=== PATIENT | male | born 1985 | race Caucasian/White ===

== ENCOUNTER 2021-04-13 15:13 | Outpatient (REF) | payer OTHER, SELFPAY ==
[2021-04-13 16:44] LABS: Glucose Urine UA NEG (NEG); Leukocyte Esterase Urine NEG (NEG); Nitrite Urine NEG (NEG); PH 6.5 (5.0-8.0); Urine Blood NEG (NEG); Urine Ketones NEG (NEG); Urine Protein NEG (NEG-TRACE)
[2021-04-13 16:47] LABS: Appearance Urine CLEAR; Color Urine YELLOW
[2021-04-13 16:59] LABS: Alanine Aminotransferase 38 U/L (0-40); Albumin Level 4.6 g/dL (3.5-5.0); Alkaline Phosphatase 58 U/L (39-117); Anion Gap 12 (12-20); Aspartate Amino Transferase 22 U/L (5-37); Blood Urea Nitrogen 21 mg/dL (9-16); Calcium 9.9 mg/dL (8.4-10.2); Carbon Dioxide 30 mmol/L (22-29); Chloride 104 mmol/L (96-108); Estimated Glomerular Filt Rate > 60; Glucose Random 83 mg/dL (60-115); Potassium 4.1 mmol/L (3.3-5.1); Sodium 142 mmol/L (135-145); Total Protein 7.1 g/dL (6.5-8.0)
[2021-04-13 17:21] LABS: Prostate Specific Antigen Scr 0.63 ng/mL (<0.05-4.0)
[2021-04-13 17:23] LABS: RBC Urine 0 /HPF (0); WBC Urine 0 /HPF (0-4)
== END 2021-04-13 15:14 | disposition home or self-care (01) ==
LOC: HO.HMGCLDS 15:13
PROVIDERS: PCP Nurse Practitioner Family; Visit Provider Nurse Practitioner Family
DX: R35.0 Frequency of micturition (principal); Z12.5 Encounter for screening for malignant neoplasm of prostate
CPT/HCPCS: 36415; 80053; 81001; 84153; 87086

== ENCOUNTER → 2021-06-22 15:28 | Outpatient (BNVA) | payer OTHER, SELFPAY | PROVIDERS: PCP Nurse Practitioner Family; Visit Provider Urology ==

== ENCOUNTER 2021-08-10 06:00 | Outpatient (REF) | payer OTHER, SELFPAY ==
[2021-08-10 12:03] LABS: Appearance Urine CLEAR; Color Urine YELLOW; Glucose Urine UA NEG (NEG); Leukocyte Esterase Urine NEG (NEG); Nitrite Urine NEG (NEG); Urine Blood NEG (NEG); Urine Ketones NEG (NEG); Urine Protein NEG (NEG-TRACE)
[2021-08-10 12:21] LABS: Alanine Aminotransferase 29 U/L (0-40); Albumin Level 4.5 g/dL (3.5-5.0); Alkaline Phosphatase 56 U/L (39-117); Anion Gap 11 (12-20); Aspartate Amino Transferase 18 U/L (5-37); Bilirubin Total 0.7 mg/dL (0.0-1.0); Blood Urea Nitrogen 15 mg/dL (9-16); Calcium 9.4 mg/dL (8.4-10.2); Carbon Dioxide 26 mmol/L (22-29); Chloride 109 mmol/L (96-108); Cholesterol 220 mg/dL; Estimated Glomerular Filt Rate > 60; Glucose Fasting 101 mg/dL (60-99); HDL Cholesterol 57 mg/dL; LDL Cholesterol Calculated 149 mg/dl; Potassium 4.4 mmol/L (3.3-5.1); Sodium 142 mmol/L (135-145); Triglycerides 74 mg/dL
[2021-08-10 12:42] LABS: TSH reflex Free T4 1.62 uIU/mL (0.32-4.0)
== END 2021-08-10 06:01 | disposition home or self-care (01) ==
LOC: HO.HMGCLDS 06:00
PROVIDERS: PCP Nurse Practitioner Family; Visit Provider Nurse Practitioner Family
DX: Z00.00 Encounter for general adult medical examination without abnormal findings (principal)
CPT/HCPCS: 36415; 80053; 80061; 81003; 84443

== ENCOUNTER 2021-12-31 12:09 | Outpatient (REF) | payer OTHER, SELFPAY ==
[2021-12-31 13:40] LABS: Appearance Urine CLEAR; Color Urine YELLOW; Glucose Urine UA NEG (NEG); Leukocyte Esterase Urine NEG (NEG); Nitrite Urine NEG (NEG); PH 6.5 (5.0-8.0); Specific Gravity - Urine 1.015 (1.005-1.025); Urine Blood NEG (NEG); Urine Ketones NEG (NEG); Urine Protein NEG (NEG-TRACE)
[2021-12-31 14:03] LABS: RBC Urine 0 /HPF (0); WBC Urine 0 /HPF (0-4)
[2021-12-31 14:17] LABS: Prostate Specific Antigen 0.66 ng/mL (<0.05-4.0)
[2021-12-31 14:32] LABS: Syphilis Screen Nonreactive (Nonreactive)
[2021-12-31 15:10] LABS: CT PCR NOT DETECTED (Not Detect.); NG PCR NOT DETECTED (Not Detect.)
== END 2021-12-31 12:10 | disposition home or self-care (01) ==
LOC: HO.HMGCLDS 12:09
PROVIDERS: Visit Provider Nurse Practitioner Family
DX: Z12.5 Encounter for screening for malignant neoplasm of prostate (principal); Z11.3 Encounter for screening for infections with a predominantly sexual mode of transmission; N39.43 Post-void dribbling; R35.0 Frequency of micturition
CPT/HCPCS: 81001; 84153; 86780; 87086; 87491; 87591

== ENCOUNTER 2022-04-08 06:08 | Outpatient (REF) | payer OTHER, SELFPAY ==
[2022-04-08 11:35] LABS: Appearance Urine HAZY; Color Urine ORANGE; Glucose Urine UA NEG (NEG); Leukocyte Esterase Urine NEG (NEG); Specific Gravity - Urine 1.025 (1.005-1.025); Urine Blood NEG (NEG); Urine Ketones NEG (NEG); Urine Protein TRACE MG/DL (NEG-TRACE)
[2022-04-08 12:12] LABS: Calcium Oxalate Crystals Urine 1+ /LPF
[2022-04-08 12:13] LABS: RBC Urine 0 /HPF (0); Squamous Epithelial Cell Urine TRACE /LPF; WBC Urine 0 /HPF (0-4)
== END 2022-04-08 06:09 | disposition home or self-care (01) ==
LOC: HO.HMGCLDS 06:08
PROVIDERS: PCP Nurse Practitioner Family; Visit Provider Nurse Practitioner Family
DX: R35.0 Frequency of micturition (principal)
CPT/HCPCS: 81001; 87086

== ENCOUNTER → 2022-04-19 14:12 | Outpatient (BNVA) | payer OTHER, SELFPAY | PROVIDERS: PCP Nurse Practitioner Family; Visit Provider Urology | DX: N32.81 Overactive bladder (principal); N45.1 Epididymitis | CPT/HCPCS: 51798 ==

== ENCOUNTER 2022-09-02 06:05 | Outpatient (REF) | payer OTHER, SELFPAY ==
[2022-09-02 11:25] LABS: MANUAL DIFF FLAG NO
[2022-09-02 11:36] LABS: Basophils Absolute Auto 0.1 X10*3/uL (0.0-0.2); Eosinophils Absolute Auto 0.1 X10*3/uL (0.0-0.4); Eosinophils Percent Auto 2.3 % (0-4); Hematocrit 50.4 % (42.0-52.0); Hemoglobin 16.6 g/dl (14.0-18.0); Lymphocytes Absolute Auto 2.1 X10*3/uL (1.2-4.9); Lymphocytes Percent Auto 43.4 % (20-40); Mean Corpuscular HGB Conc 32.9 g/dl (31.0-36.0); Mean Corpuscular Hemoglobin 29.6 pg (27.0-33.0); Mean Corpuscular Volume 89.8 fL (80.0-98.0); Mean Platelet Volume 9.2 fL (9.4-12.4); Monocytes Absolute Auto 0.3 X10*3/uL (0.1-1.2); Monocytes Percent Auto 7.1 % (2-11); Neutrophils Absolute Auto 2.2 x10*3/uL (2.0-8.3); Neutrophils Percent Auto 46.2 % (45-73); Platelet Count 273 X10*3/uL (160-400); Red Blood Count 5.61 X10*6/uL (4.60-5.80); Red Cell Distribution Width 11.9 % (11.0-16.0); White Blood Count 4.8 X10*3/uL (4.8-10.8)
[2022-09-02 11:53] LABS: Appearance Urine Clear; Color Urine Yellow; Glucose Urine UA Negative (Negative); Leukocyte Esterase Urine Negative (Negative); Nitrite Urine Negative (Negative); Urine Blood Negative (Negative); Urine Ketones Negative (Negative); Urine Protein Negative (Neg-Trace)
[2022-09-02 11:59] LABS: Alanine Aminotransferase 33 U/L (0-40); Albumin Level 4.5 g/dL (3.5-5.0); Alkaline Phosphatase 58 U/L (39-117); Anion Gap 14 (12-20); Aspartate Amino Transferase 22 U/L (5-37); Bilirubin Total 0.9 mg/dL (0.0-1.0); Blood Urea Nitrogen 19 mg/dL (9-16); Calcium 9.3 mg/dL (8.4-10.2); Carbon Dioxide 27 mmol/L (22-29); Chloride 102 mmol/L (96-108); Cholesterol 210 mg/dL; Estimated Glomerular Filt Rate > 60; Glucose Fasting 96 mg/dL (60-99); HDL Cholesterol 60 mg/dL; LDL Cholesterol Calculated 139 mg/dl; Potassium 4.3 mmol/L (3.3-5.1); Sodium 139 mmol/L (135-145); Total Protein 7.1 g/dL (6.5-8.0); Triglycerides 57 mg/dL
[2022-09-02 12:07] LABS: TSH reflex Free T4 1.57 uIU/mL (0.32-4.0)
== END 2022-09-02 06:06 | disposition home or self-care (01) ==
LOC: HO.HMGCLDS 06:05
PROVIDERS: PCP Nurse Practitioner Family; Visit Provider Nurse Practitioner Family
DX: Z00.00 Encounter for general adult medical examination without abnormal findings (principal); Z13.220 Encounter for screening for lipoid disorders; Z13.29 Encounter for screening for other suspected endocrine disorder
CPT/HCPCS: 36415; 80053; 80061; 81003; 84443; 85025

== ENCOUNTER 2022-11-19 09:19 | Outpatient (REF) | payer OTHER, SELFPAY ==
--- NOTE | ~2022-11-19 | XR_ITS ---
EXAMINATION: XR FOOT, RIGHT CLINICAL INFORMATION: Right foot pain COMPARISON: None TECHNIQUE: AP, lateral, and oblique views of the right foot. FINDINGS: The bones and soft tissues are normal. No fracture. Alignment is anatomic. Joint spaces are maintained. XR/XR foot RT 2V IMPRESSION: Normal right foot.
== END 2022-11-19 09:20 | disposition home or self-care (01) ==
LOC: HO.HMGCX 09:19
PROVIDERS: PCP Nurse Practitioner Family; Visit Provider Nurse Practitioner Family
DX: M79.671 Pain in right foot (principal)
CPT/HCPCS: 73620

== ENCOUNTER 2022-12-16 07:00 | Outpatient (RCR) | payer OTHER, SELFPAY ==
--- NOTE | 2022-11-21 15:06 | MHC.PT.EP ---
[facility] [place] Office [place] Office [place] Office [address] [phone] F: [phone] F: [phone] F: [phone] F: [phone] Physical Therapy Plan of Care Date of Evaluation: Date of Surgery: Diagnosis: pain in R foot. Assessment: Patient is a 37 year old R handed male who presents with s/s consistent with R foot, achilles pain. 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 Patient past medical history is unremarkable. Current impairments include pain, posture, ROM, strength, activity tolerance, gait mechanics and functional mobility. Functional limitations include decreased ability to walk, run, exercise. Patient is motivated with good rehab potential. Skilled PT will address impairments and functional limitations in order to achieve goals. Frequency and Duration: The patient will be seen 2x/week for 5 weeks Short Term Goals: I with HEP - 2 weeks Normal hip and ankle flex - 3 weeks [employer] Goals: LEFS 74/80 - 5 weeks PAin free running > 5 miles - 5 weeks Strength 4+/5 grossly - 5 weeks Symmetrical gait - 5 weeks Treatment Plan: Modalities to reduce pain, spasms and effusion. Manual therapy to restore motion and function. Therapeutic exercise to improve strength and flexibility. Neuromuscular re-education for posture and balance. Therapeutic activities to return to functional activities of daily living. Electronically signed by: Stanton Solis, PT Please sign and return to therapist. Thank you for your referral.
--- NOTE | 2023-01-18 09:10 | MHC.PT.DC ---
[facility] [place] [facility] [place] Office [place] Office [address] Vee Pelayo [address] [phone] F: [phone] F: [phone] F: [phone] F: [phone] Physical Therapy Discharge Report Diagnosis: pain in R foot. Date of Surgery: Date of Evaluation: 11/21/22 Date of Discharge: 12/29/22 Treatments to Date: 5 Cancellations to Date: No Shows to Date: Discharge Status: Improved Function Independent with HEP Discharge Summary: 12/16/22: we reviewed HEP. Flex has improved grossly. He is able to run pain free x3 miles. Strength and gait goals met. He will attempt to proceed exclusively with HEP at this time. 12/09/22: pt progressed with ankle control, hip strength and flex. we will discuss compression NV. 12/06: Reviewed program up to point with good initial program compliance; addressing noted hip weakness from eval with new ther ex and Pt will trial for HEP. blue theraloop issued. No adverse effects. Reports increased to about 4 mils with mild discomfort. 12/02/22: pt has been compliant with HEP. responding well overall. was able to run 3 pain free miles since eval. we discussed gradual progression on this as he plans to prepare for [place] race. added stretching and STM today, eccentric HR on stair. good response. Patient is a 37 year old R handed male who presents with s/s consistent with R foot, achilles pain. 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 Patient past medical history is unremarkable. Current impairments include pain, posture, ROM, strength, activity tolerance, gait mechanics and functional mobility. Functional limitations include decreased ability to walk, run, exercise. Patient is motivated with good rehab potential. Skilled PT will address impairments and functional limitations in order to achieve goals. Electronically signed by: Stanton Solis, PT Please sign and return to therapist. Thank you for your referral.
== END 2023-01-18 09:10 | disposition home or self-care (01) ==
LOC: HO.PTCHIC 07:00
PROVIDERS: PCP Nurse Practitioner Family; Visit Provider Nurse Practitioner Family
DX: M79.671 Pain in right foot (principal)
CPT/HCPCS: 97110; 97140; 97161

== ENCOUNTER 2023-03-08 06:02 | Outpatient (REF) | payer OTHER, SELFPAY ==
[2023-03-08 11:09] LABS: MANUAL DIFF FLAG NO
[2023-03-08 11:28] LABS: Appearance Urine Clear; Color Urine Yellow; Glucose Urine UA Negative (Negative); Leukocyte Esterase Urine Negative (Negative); Nitrite Urine Negative (Negative); Specific Gravity - Urine 1.025 (1.005-1.025); Urine Blood Negative (Negative); Urine Ketones Negative (Negative); Urine Protein Negative (Neg-Trace)
[2023-03-08 11:29] LABS: Basophils Percent Auto 0.9 % (0-2); Eosinophils Absolute Auto 0.1 X10*3/uL (0.0-0.4); Eosinophils Percent Auto 2.3 % (0-4); Hematocrit 50.2 % (42.0-52.0); Hemoglobin 16.5 g/dl (14.0-18.0); Imm Gran Abs Auto 0.01 X10*3/uL (0.00-0.03); Imm Gran Pct Auto 0.2 % (0.0-0.4); Lymphocytes Absolute Auto 2.1 X10*3/uL (1.2-4.9); Lymphocytes Percent Auto 48.3 % (20-40); Mean Corpuscular HGB Conc 32.9 g/dl (31.0-36.0); Mean Corpuscular Hemoglobin 29.7 pg (27.0-33.0); Mean Corpuscular Volume 90.3 fL (80.0-98.0); Mean Platelet Volume 9.1 fL (9.4-12.4); Monocytes Absolute Auto 0.3 X10*3/uL (0.1-1.2); Monocytes Percent Auto 7.6 % (2-11); Neutrophils Absolute Auto 1.8 x10*3/uL (2.0-8.3); Neutrophils Percent Auto 40.7 % (45-73); Platelet Count 232 X10*3/uL (160-400); Red Blood Count 5.56 X10*6/uL (4.60-5.80); Red Cell Distribution Width 12.1 % (11.0-16.0); White Blood Count 4.4 X10*3/uL (4.8-10.8)
[2023-03-08 12:13] LABS: Alanine Aminotransferase 40 U/L (0-40); Albumin Level 4.4 g/dL (3.5-5.0); Alkaline Phosphatase 55 U/L (39-117); Anion Gap 13 (12-20); Aspartate Amino Transferase 24 U/L (5-37); Bilirubin Total 1.4 mg/dL (0.0-1.0); Blood Urea Nitrogen 20 mg/dL (9-16); Calcium 9.4 mg/dL (8.4-10.2); Carbon Dioxide 27 mmol/L (22-29); Chloride 105 mmol/L (96-108); Cholesterol 229 mg/dL; Estimated Glomerular Filt Rate > 60; Glucose Fasting 94 mg/dL (60-99); HDL Cholesterol 57 mg/dL; LDL Cholesterol Calculated 158 mg/dl; Potassium 4.2 mmol/L (3.3-5.1); Sodium 141 mmol/L (135-145); TSH reflex Free T4 1.67 uIU/mL (0.32-4.0); Total Protein 6.7 g/dL (6.5-8.0); Triglycerides 74 mg/dL
== END 2023-03-08 06:03 | disposition home or self-care (01) ==
LOC: HO.HMGCLDS 06:02
PROVIDERS: PCP Nurse Practitioner Family; Visit Provider Nurse Practitioner Family
DX: E78.5 Hyperlipidemia, unspecified (principal)
CPT/HCPCS: 36415; 80053; 80061; 81003; 84443; 85025

== ENCOUNTER 2023-06-19 10:00 | Outpatient (RCR) | payer OTHER, SELFPAY ==
--- NOTE | 2023-03-29 16:12 | MHC.PT.EP ---
[facility] [place] Office [place] Office [place] Office [address] Vee Pelayo [address] [phone] F: [phone] F: [phone] F: [phone] F: [phone] Physical Therapy Plan of Care Date of Evaluation: Date of Surgery: n/a Diagnosis: pain in L knee Assessment: Patient is a 37 year old male presenting to PT with complaints of pain in his L knee. Pt reports onset of pain began February 2023 due to insidious onset but possible due to running. He presents today with impairments in pain, quad length, +ttp patella tendon, strength. 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 Pt expresses correction goal of reducing pain, and is motivated to work towards this in PT. Clinical presentation today is most consistent with signs and sx associated with possible patella tendonitis and pt will benefit from skilled PT 2 week x 6 weeks to address the following problems and impairments noted upon evaluation: pain, quad length, +ttp patella tendon, strength. These problems limit the patient with the following functional activities: running, ambulating, stair negotiation. The prescribed treatment plan of care is medically necessary. Co-morbidities of none were identified and taken into considerations of plan of care. Pt was educated on HEP, role of PT, prognosis, POC. Frequency and Duration: The patient will be seen 2 x week x 6 weeks Short Term Goals: Pt will demonstrate ability to perform SL STS from chair to demonstrate improved SL stability in 3 weeks. Pt will demonstrate improved hip flexor muscle length in 3 weeks as evidence by negative liang test. Pt will demonstrate minimal to no tenderness to patella tendon in 3 weeks. Clinical Informatics Educator Goals: Pt will demonstrate improved LEFI score by 9 points in 6 weeks for improved functional mobility. Pt will demonstrate ability to jog short distances without pain in 6 weeks for return to PLOF. Pt will demonstrate ability to negotiate stairs with min to no pain in 6 weeks for improved access to his home. Treatment Plan: Modalities to reduce pain, spasms and effusion. Manual therapy to restore motion and function. Therapeutic exercise to improve strength and flexibility. Neuromuscular re-education for posture and balance. Therapeutic activities to return to functional activities of daily living. Electronically signed by: Crystal Douglas, PT, DPT, ATC Please sign and return to therapist. Thank you for your referral.
--- NOTE | 2023-07-21 07:42 | MHC.PT.DC ---
[facility] [place] Office [place] Office [place] Office [address] [phone] F: [phone] F: [phone] F: [phone] F: [phone] Physical Therapy Discharge Report Diagnosis: pain in L knee Date of Surgery: n/a Date of Evaluation: 03/29/23 Date of Discharge: 07/21/23 Treatments to Date: 13 Cancellations to Date: 1 No Shows to Date: 0 Discharge Status: Improved Function Independent with HEP Discharge Summary: Pt was placed on 30 day hold at last visit. 30 days has passed and pt has not reached out to be scheduled. Therefore pt to be d/c. Electronically signed by: Crystal Douglas, PT, DPT, ATC Please sign and return to therapist. Thank you for your referral.
== END 2023-07-21 07:42 | disposition home or self-care (01) ==
LOC: HO.PTCHIC 10:00
PROVIDERS: PCP Nurse Practitioner Family; Visit Provider Nurse Practitioner Family
DX: M25.562 Pain in left knee (principal)
CPT/HCPCS: 97110; 97140; 97161

== ENCOUNTER 2023-08-15 16:18 | Outpatient (AMB) | payer OTHER, SELFPAY ==
--- NOTE | 2023-08-15 16:39 | MHC.PC.OV ---
Vital Signs 08/15/23 16:40 Height 5 ft 10 in Weight 187 lb 2 oz BMI 26.8 BP 126/88 Blood Pressure Location Lt brachial Position Sitting Pulse 73 Pulse Source Pulse Oximeter Pulse Oximetry (%) 97 Oxygen Delivery Method Room Air Intake Visit Reasons: Physical Exam Allergies nisoldipine [Sular] Allergy (Unknown, Verified 08/15/23 16:42) unknown Sulfa (Sulfonamide Antibiotics) [SULFA (SULFONAMIDE ANTIBIOTICS)] Allergy (Unknown, Verified 08/15/23 16:42) UNK sulfamethoxazole Allergy (Verified 08/15/23 16:42) Unknown Medication List - Last Reconciled 08/15/23 by SARAH Gary cetirizine (Zyrtec) 20 mg PO BID PRN fluticasone propionate 50 mcg/actuation (Flonase Allergy Relief) 1 spray intranasal BID PRN hydroxyzine HCl 25 mg PO BEDTIME lorazepam 0.5 mg PO BEDTIME PRN 30 days naltrexone mg PO oxybutynin chloride ER 10 mg PO DAILY solifenacin (Vesicare) 5 mg PO DAILY tamsulosin 0.4 mg PO BEDTIME Tobacco use date assessed: 08/15/23 Dental Screening Dental Screen Date: 08/15/23 Did you have a dental visit in the last 12 months?: Yes Did you have a dental problem in the last 6 months where you did not have access to dental care?: No Was dental information given to patient?: Patient has dentist HPI Physical Exam HPI Details Pt is here for a PE. Will order labs. pt sees urology, ? IC component. PFSH Medical History Anxiety Surgical History Hx of shoulder surgery Social History Housing: House Patient Tobacco Use Status: Never used Tobacco e-Cigarette/Vaping Use: Never Used Second Hand Smoke Exposure: No service: No Current occupational status: employed Current occupation: [employer] Current occupational exposures/hazards: Yes Cognitive needs: No Hearing needs: No Vision needs: No Questionnaire Thrive Questionnaire Date Thrive assessed: 08/05/21 Review of Systems Const Denies chills and Denies fever(s) Eyes Denies blurry vision ENT Denies vertigo, Denies dizziness and Denies sore throat Card Denies chest pain at rest, Denies chest pain with activity, Denies diaphoresis, Denies dyspnea and Denies dyspnea on exertion Resp Denies cough, Denies dyspnea, Denies dyspnea on exertion and Denies wheezing GI Denies abdominal pain, Denies melena, Denies hematochezia, Denies constipation, Denies diarrhea and Denies loose stools Denies hematuria Musc Denies numbness and Denies tingling Skin/Breast Denies lesions Neuro Denies vertigo, Denies dizziness, Denies numbness and Denies tingling Psych Denies anxiety, Denies depression, Denies homicidal ideation, Denies suicidal ideation and Denies other (substance abuse) Aller/Immun Denies wheezing Physical exam (Primary Care) Vital Signs: Last Vital Signs Pulse 73 08/15/23 16:40 BP 126/88 08/15/23 16:40 Pulse Ox 97 08/15/23 16:40 Oxygen Delivery Method Room Air 08/15/23 16:40 BMI result Body Mass Index 26.8 Tobacco/Smoking Status: Tobacco use Status Tobacco use date assessed 08/15/23 08/15/23 16:47 Patient Tobacco Use Status Never used Tobacco 08/15/23 16:47 e-Cigarette/Vaping Use Never Used 08/15/23 16:47 Thrive Assessment: Date of Thrive Assessment Date Thrive assessed 08/05/21 08/15/23 16:47 Const General: cooperative Nutritional Appearance: well nourished Orientation/consciousness: patient oriented x3 HENMT Head: Yes normal to inspection, Yes normocephalic and Yes atraumatic Ears: TM's normal bilaterally Eyes General: appearance normal, both eyes and all related structures Alignment and Position: alignment normal and position normal Neck Neck: Yes normal visual inspection and Yes no lymphadenopathy Thyroid: Thyroid normal Resp Effort & Inspection: normal respiratory effort Auscultation: clear to auscultation bilaterally Cardio Rate: regular rate Rhythm: regular rhythm Heart sounds: S1 normal heart sound present, S2 normal heart sound present and no murmurs GI Palpation (GI): Soft to palpation and nontender Auscultation: normal bowel sounds Male General Exam: Yes normal external exam Penis: normal penis Scrotum: scrotum normal, testes descended bilaterally and no inguinal hernias Testes: no testicular mass Skin Rashes: no rashes Neuro General: patient oriented x3, moves all extremities, no focal motor deficits and deep tendon reflexes 2+ bilaterally Romberg Test: Negative Psych Appearance: grossly normal Mental Status: mental status grossly normal Speech and movement: Normal speech and movement present Affect: normal affect Attitude: cooperative Thought process: Normal thought process present Thought content: Normal thought content present Insight: Good insight present (Psych) Judgement: Good judgement present (Psych) Assessment and Plan Assessment & Plan (1) Physical exam: Code(s): Z. - Encounter for general adult medical examination without abnormal findings Orders: Orders Complete Blood Count Auto Diff Today Z00. - Encounter for general adult medical examination without abnormal findings Comprehensive [place]. Panel Fast Today Z00.00 - Encounter for general adult medical examination without abnormal findings UA CC w/rflx Micro + Cult Today Z00.00 - Encounter for general adult medical examination without abnormal findings TSH reflex Free T4 Today Z00.00 - Encounter for general adult medical examination without abnormal findings Lipid Panel Today Z00.00 - Encounter for general adult medical examination without abnormal findings Coding Level of Care Code Est Pt Prev Care 18-39y(22062) Diagnoses Physical exam Z00.00
[2023-08-15 16:40] VITALS: BP 126/88; PULSE 73; O2SAT 97; BMI 26.8
== END 2023-08-15 17:26 | disposition home or self-care (01) ==
PROVIDERS: Visit Provider Nurse Practitioner Family
DX: Z00.00 Encounter for general adult medical examination without abnormal findings (principal)
CPT/HCPCS: 99395

== ENCOUNTER 2023-10-02 16:02 | Outpatient (REF) | payer OTHER, SELFPAY ==
--- NOTE | ~2023-10-02 | XR_ITS ---
EXAMINATION: XR FOOT, RIGHT XR ANKLE, RIGHT CLINICAL INFORMATION: Pain in right foot and ankle and joints of foot. COMPARISON: Right foot 11/19/2022 radiographs. TECHNIQUE: AP, lateral, and oblique views of the right foot. AP and oblique views of the right ankle. FINDINGS: RIGHT ANKLE: Very minimal spurring along the dorsal aspect of the calcaneus at the site of the Achilles tendon insertion. Subtle transverse lucency along the inferior aspect of the medial malleolus. Ossicle overlying the medial malleolus partially obscured by overlying bony structures. Possible subtle subchondral lucency along the lateral aspect of the talar dome. RIGHT FOOT: Joint spaces are preserved. Bone mineralization normal. No displaced fracture appreciated. XR/XR ankle RT 2V IMPRESSION: 1. Subtle transverse lucency along the inferior aspect of the medial malleolus, possibly related to fracture of indeterminate age. 2. Ossicle overlying the medial malleolus partially obscured by overlying bony structures of indeterminate age and etiology. 3. Possible subtle subchondral lucency along the lateral aspect of the talar dome. 4. Correlation with clinical exam recommended to determine further management including possible additional imaging with MRI. This study was presented today, October 04, 2023, at 9:30 AM for interpretation. PSA staff will provide results to referring provider at this time.
--- NOTE | ~2023-10-02 | XR_ITS ---
EXAMINATION: XR FOOT, RIGHT XR ANKLE, RIGHT CLINICAL INFORMATION: Pain in right foot and ankle and joints of foot. COMPARISON: Right foot 11/19/2022 radiographs. TECHNIQUE: AP, lateral, and oblique views of the right foot. AP and oblique views of the right ankle. FINDINGS: RIGHT ANKLE: Very minimal spurring along the dorsal aspect of the calcaneus at the site of the Achilles tendon insertion. Subtle transverse lucency along the inferior aspect of the medial malleolus. Ossicle overlying the medial malleolus partially obscured by overlying bony structures. Possible subtle subchondral lucency along the lateral aspect of the talar dome. RIGHT FOOT: Joint spaces are preserved. Bone mineralization normal. No displaced fracture appreciated. XR/XR foot RT 2V IMPRESSION: 1. Subtle transverse lucency along the inferior aspect of the medial malleolus, possibly related to fracture of indeterminate age. 2. Ossicle overlying the medial malleolus partially obscured by overlying bony structures of indeterminate age and etiology. 3. Possible subtle subchondral lucency along the lateral aspect of the talar dome. 4. Correlation with clinical exam recommended to determine further management including possible additional imaging with MRI. This study was presented today, October 04, 2023, at 9:30 AM for interpretation. PSA staff will provide results to referring provider at this time.
== END 2023-10-02 16:03 | disposition home or self-care (01) ==
LOC: HO.HMGCX 16:02
PROVIDERS: PCP Nurse Practitioner Family; Visit Provider Nurse Practitioner Family
DX: M79.671 Pain in right foot (principal); M25.571 Pain in right ankle and joints of right foot
CPT/HCPCS: 73600; 73620

== ENCOUNTER 2023-10-26 10:29 | Outpatient (REF) | payer OTHER, SELFPAY | END 2023-10-26 10:30 | disposition home or self-care (01) | LOC: HO.HOSX 10:29 | PROVIDERS: PCP Nurse Practitioner Family; Visit Provider Physical Medicine & Rehabilitation | DX: M22.2X1 Patellofemoral disorders, right knee (principal); M22.2X2 Patellofemoral disorders, left knee; S93.401A Sprain of unspecified ligament of right ankle, initial encounter | CPT/HCPCS: 73562 ==

== ENCOUNTER 2023-10-26 10:29 | Outpatient (AMB) | payer OTHER, SELFPAY ==
--- NOTE | 2023-10-26 10:38 | A.OFFVIS_ITS ---
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 Patient reports that he is an active runner and has been having pain with running. He was previously seen for achilles tendinitis and had completed PT. His PCP ordered an MRI that is scheduled for 11/13/22. Currently his pain is located at the top of his foot and his achilles. He also complains of pain at the anterior aspect of knee, stating unsure if this is related. Allergies Sulfa (Sulfonamide Antibiotics) [SULFA (SULFONAMIDE ANTIBIOTICS)] Allergy (Unknown, Verified 08/15/23 16:42) UNK sulfamethoxazole Allergy (Verified 08/15/23 16:42) Unknown Medication List - Last Reconciled 10/26/23 by Natasha Morocho MD cetirizine (Zyrtec) 20 mg PO BID PRN fluticasone propionate 50 mcg/actuation (Flonase Allergy Relief) 1 spray intranasal BID PRN hydroxyzine HCl 25 mg PO BEDTIME lorazepam 0.5 mg PO BEDTIME PRN 30 days naltrexone mg PO oxybutynin chloride ER 10 mg PO DAILY solifenacin (Vesicare) 5 mg PO DAILY tamsulosin 0.4 mg PO BEDTIME HPI HPI Comments History of Present Illness Details Right foot Has been a runner over 2 years; 2-3 days/week; 15-20 miles/week; changed shoes every 300-400 miles; running over pavements. Does weight lifting at the gym. 1 year ago, had right achilles tendiniti s; had PT, improved. Went back to running, did a 6 mile race for the first time, January 2023. Started training for a half marathon. Last February, started having left knee pain/patellar pain. Did PT for the left knee. During that process, actually did have bilateral knee/patellar pain and tightness on hamstrings, calves and quadriceps. Continued PT. Left knee better. Continued to have wiggle /pain on distal quadriceps and hamstrings, more like discomfort. Lessened runs to 3-5 miles. Last time he ran was 09/21. A day after, felt on right lateral ankle, achilles and dorsal foot. Has switched stairmaster and biking. Xray shows lucency near medial malleoli and MRI pending. [facility] Medical History (Updated 10/26/23 @ 11:51 by Natasha Morocho MD) Anxiety Surgical History (Updated 10/26/23 @ 10:40 by Kelsey Mendoza Alpesh) Hx of shoulder surgery Social History Housing: House Patient Tobacco Use Status: Never used Tobacco e-Cigarette/Vaping Use: Never Used Second Hand Smoke Exposure: No service: No Current occupational status: employed Current occupation: [employer] Current occupational exposures/hazards: Yes Cognitive needs: No Hearing needs: No Vision needs: No Review of Systems Const All systems reviewed & are unremarkable except as noted in HPI and below Physical Exam Constitutional: Patient appears to be in no acute distress, well nourished and well developed. MSK: No specific abnormalities found on inspection of the spine and all extremities. Lumbar ROM was full. Bilateral hip, knee and ankle ROM WNL. No ligamentous laxity or crepitant. No increased effusion. No joint line tenderness. No tenderness over patella. Patellar grind test is negative. Valgus and varus stress tests are negative. Margaret test is negative. No significant tenderness over right Achillis tendon. No tenderness on plantar fascia. No footdrop. No pain or weakness on EHL. No ankle instability. No tenderness on or around medial or lateral malleoli. Strength is 5/5 in all muscle groups tested. No increased tone noted. Neurological: Neurologic examination of the upper and lower extremities was nonfocal with intact sensation, muscle stretch reflexes and without focal motor deficits . Rodriguez?s negative bilaterally. Babinski was down going bilaterally. Clonus was negative. Gait is non-antalgic without loss of balance. Results Reviewed Results Reviewed: XR FOOT, RIGHT XR ANKLE, RIGHT CLINICAL INFORMATION: Pain in right foot and ankle and joints of foot. COMPARISON: Right foot 11/19/2022 radiographs.? TECHNIQUE: AP, lateral, and oblique views of the right foot. AP and oblique views of the right ankle. FINDINGS: RIGHT ANKLE: Very minimal spurring along the dorsal aspect of the calcaneus at the site of the Achilles tendon insertion. Subtle transverse lucency along the inferior aspect of the medial malleolus. Ossicle overlying the medial malleolus partially obscured by overlying bony structures. Possible subtle subchondral lucency along the lateral aspect of the talar dome. RIGHT FOOT: Joint spaces are preserved. Bone mineralization normal. No displaced fracture appreciated. XR/XR foot RT 2V IMPRESSION: ? 1. Subtle transverse lucency along the inferior aspect of the medial malleolus, possibly related to fracture of indeterminate age. 2. Ossicle overlying the medial malleolus partially obscured by overlying bony structures of indeterminate age and etiology. 3. Possible subtle subchondral lucency along the lateral aspect of the talar dome. 4. Correlation with clinical exam recommended to determine further management including possible additional imaging with MRI. ? This study was presented today, October 04, 2023, at 9:30 AM for interpretation. PSA staff will provide results to referring provider at this time. I reviewed records from the following: PCP Urology Assessment & Plan Assessment & Plan (1) Right ankle sprain: Code(s): S93.401A - Sprain of unspecified ligament of right ankle, initial encounter Qualifiers: Encounter type: initial encounter Involved ligament of ankle: unspecified ligament Qualified Code(s): S93.401A - Sprain of unspecified ligament of right ankle, initial encounter (2) Patellofemoral pain syndrome of both knees: Code(s): M22.2X1 - Patellofemoral disorders, right knee; M22.2X2 - Patellofemoral disorders, left knee Plan Suspect right ankle sprain on an avid runner. He is also dealing with patellofemoral pain syndrome. No instability seen on either ankle or knees on exam today. I agree with laying off from running for now. May go back to working out using cardio or biking, not pushing through pain, until at least completely pain-free and or cleared from MRI pain. Taught him out use an ice bucket. 15 minutes per day. Will put him on a lace-up ankle brace. Will do knee x-rays today. To include sunrise views to see any displacement of patella. Await MRI. Assessment and plan discussed with patient, and patient was agreeable. All questions were answered thoroughly. Follow-up 4-6 weeks. Natasha Morocho MD, EUGENIA Board Certified, [place] [employer] and [employer] (ABPMR) Board Certified, [place] [employer] (ABEM) Orders: Orders XR knee RT 3V Today M22.2X1 - Patellofemoral disorders, right knee, M22.2X2 - Patellofemoral disorders, left knee XR knee LT 3V Today M22.2X1 - Patellofemoral disorders, right knee, M22.2X2 - Patellofemoral disorders, left knee, M25.50 - Pain in unspecified joint Coding Level of Care Code New Pt Level 4 (23599) Diagnoses Sprain of right ankle, unspecified ligament, initial encounter S93.401A Encounter type: initial encounter Involved ligament of ankle: unspecified ligament Patellofemoral pain syndrome of both knees M22.2X1; M22.2X2
== END 2023-10-26 11:28 | disposition home or self-care (01) ==
PROVIDERS: PCP Nurse Practitioner Family; Visit Provider Physical Medicine & Rehabilitation
DX: S93.401A Sprain of unspecified ligament of right ankle, initial encounter (principal); M22.2X1 Patellofemoral disorders, right knee; M22.2X2 Patellofemoral disorders, left knee
CPT/HCPCS: 99204

== ENCOUNTER 2023-11-13 06:09 | Outpatient (REF) | payer OTHER, SELFPAY ==
[2023-11-18 19:18] LABS: Testosterone, Free 89.9 pg/mL (35.0-155.0); Testosterone, Total 502 ng/dL (250-1100)
== END 2023-11-13 06:10 | disposition home or self-care (01) ==
LOC: HO.HMGCLDS 06:09
PROVIDERS: PCP Nurse Practitioner Family; Visit Provider Urology
DX: R68.82 Decreased libido (principal)
CPT/HCPCS: 36415; 84402; 84403

== ENCOUNTER 2023-11-13 10:19 | Outpatient (REF) | payer OTHER, SELFPAY ==
--- NOTE | ~2023-11-13 | MR_ITS ---
EXAMINATION: MR ANKLE WITHOUT CONTRAST, RIGHT CLINICAL INFORMATION: Lateral right ankle pain since 10/02/2023. Forefoot pain. COMPARISON: Right ankle and foot radiographs dated 10/02/2023. TECHNIQUE: MRI of the ankle was performed using routine sequences on a high-field scanner. FINDINGS: BONE AND ARTICULAR CARTILAGE: Along the inferior aspect of the medial malleolus, there is a corticated osseous fragment measuring up to 0.8 x 0.4 x 0.3 cm. Mild edema within the fragment and adjacent medial malleolus. Findings likely represent a persistent, unfused medial malleolar avulsion fracture which was seen on the prior radiographs. No acute fracture or dislocation. The ankle mortise is maintained. Osteochondral lesion at the posterolateral aspect of the talar dome measuring 2.0 x 1.3 cm (AP by ML) with a depth of approximately 0.6 cm. There is overlying articular cartilage thinning with areas of full-thickness loss as well as underlying subchondral cystic change and marrow edema. No evidence of fragmentation or instability. Minimal marginal osteophytes at the talonavicular joint. ACHILLES TENDON: Intact. OTHER TENDONS: Intact. LIGAMENTS: Heterogeneity throughout the deltoid ligament as well as the anterior and posterior talofibular ligaments without significant edema, consistent with remote sprain/partial tears. JOINT FLUID AND SOFT TISSUES: No significant joint effusion. No abnormal soft tissue mass or fluid collection. PLANTAR FASCIA: Intact. SINUS TARSI AND TARSAL TUNNEL: Patent. MR/MR ankle RT wo con IMPRESSION: 1. Osteochondral lesion at the posterolateral aspect of the talar dome measuring up to 2.0 x 1.3 cm (AP x ML) with overlying articular cartilage thinning and areas of full-thickness loss as well as underlying subchondral cystic change and marrow edema. No evidence of fragmentation or instability. 2. Probable persistent, unfused medial malleolar avulsion fracture with mild marrow edema. 3. Remote sprain/partial tears of the deltoid ligament as well as the anterior and posterior talofibular ligaments.
== END 2023-11-13 10:20 | disposition home or self-care (01) ==
LOC: HO.MRI 10:19
PROVIDERS: PCP Nurse Practitioner Family; Visit Provider Nurse Practitioner Family
DX: R93.89 Abnormal findings on diagnostic imaging of other specified body structures (principal); S82.51XA Displaced fracture of medial malleolus of right tibia, initial encounter for closed fracture
CPT/HCPCS: 73721

== ENCOUNTER 2023-11-30 10:48 | Outpatient (AMB) | payer OTHER, SELFPAY ==
--- NOTE | 2023-11-30 11:00 | A.OFFVIS_ITS ---
Intake Vital Signs 11/30/23 11:02 Height 5 ft 10 in Weight 187 lb BMI 26.8 Intake Visit Reasons: OV- right foot pain Intake Note: Eren 38 yr old male presents today for his right ankle TN review. Allergies Sulfa (Sulfonamide Antibiotics) [SULFA (SULFONAMIDE ANTIBIOTICS)] Allergy (Unknown, Verified 11/30/23 11:02) UNK sulfamethoxazole Allergy (Verified 11/30/23 11:02) Unknown Medication List - Last Reconciled 11/30/23 by Natasha Morocho MD cetirizine (Zyrtec) 20 mg PO BID PRN fluticasone propionate 50 mcg/actuation (Flonase Allergy Relief) 1 spray intranasal BID PRN hydroxyzine HCl 25 mg PO BEDTIME lorazepam 0.5 mg PO BEDTIME PRN 30 days naltrexone mg PO oxybutynin chloride ER 10 mg PO DAILY solifenacin (Vesicare) 5 mg PO DAILY tamsulosin 0.4 mg PO BEDTIME HPI HPI Comments History of Present Illness Details Has been a runner over 2 years; 2-3 days/week; 15-20 miles/week; changed shoes every 300-400 miles; running over pavements. Does weight lifting at the gym. 1 year ago, had right achilles tendiniti s; had PT, improved. Went back to running, did a 6 mile race for the first time, January 2023. Started training for a half marathon. Last February, started having left knee pain/patellar pain. Did PT for the left knee. During that process, actually did have bilateral knee/patellar pain and tightness on hamstrings, calves and quadriceps. Continued PT. Left knee better. Continued to have wiggle /pain on distal quadriceps and hamstrings, more like discomfort. Lessened runs to 3-5 miles. Last time he ran was 09/21. A day after, felt on right lateral ankle, achilles and dorsal foot. Has switched stairmaster and biking. Xray shows lucency near medial malleoli. Here today for MRI review. He has not run since I saw him. Has been wearing aircast. Walking does not cause pain. He tried walking on treadmill uphill which caused more pain, he stopped. Pain would be anterior dorsal foot. No swelling now. Denies pain on lateral or medial ankle/malleoli. [facility] Medical History (Updated 11/30/23 @ 12:04 by Natasha Morocho MD) Closed avulsion fracture of right ankle with delayed healing Osteochondral lesion of talar dome Anxiety Surgical History Hx of shoulder surgery Social History Housing: House Patient Tobacco Use Status: Never used Tobacco e-Cigarette/Vaping Use: Never Used Second Hand Smoke Exposure: No service: No Current occupational status: employed Current occupation: [employer] Current occupational exposures/hazards: Yes Cognitive needs: No Hearing needs: No Vision needs: No Physical Exam Vital Signs: BMI result Body Mass Index 26.8 Constitutional: Patient appears to be in no acute distress, well nourished and well developed. MSK: No significant tenderness over right Achillis tendon. No tenderness on plantar fascia. No footdrop. No pain or weakness on EHL or peroneal tendons. No ankle instability. No tenderness on or around medial or lateral malleoli. Indicates pain dorsal/anterior foot, talus. Strength is 5/5 in all muscle groups tested. No increased tone noted. Results Reviewed Results Reviewed: Date of Service: 11/13/23 Procedure(s): MR ankle RT wo con Accession Number(s): [id number] cc: Puneet Tesfaye [employer]~ EXAMINATION: MR ANKLE WITHOUT CONTRAST, RIGHT CLINICAL INFORMATION: Lateral right ankle pain since 10/02/2023. Forefoot pain. COMPARISON: Right ankle and foot radiographs dated 10/02/2023. TECHNIQUE: MRI of the ankle was performed using routine sequences on a high-field scanner. FINDINGS: BONE AND ARTICULAR CARTILAGE: Along the inferior aspect of the medial malleolus, there is a corticated osseous fragment measuring up to 0.8 x 0.4 x 0.3 cm. Mild edema within the fragment and adjacent medial malleolus. Findings likely represent a persistent, unfused medial malleolar avulsion fracture which was seen on the prior radiographs. No acute fracture or dislocation. The ankle mortise is maintained. Osteochondral lesion at the posterolateral aspect of the talar dome measuring 2.0 x 1.3 cm (AP by ML) with a depth of approximately 0.6 cm. There is overlying articular cartilage thinning with areas of full-thickness loss as well as underlying subchondral cystic change and marrow edema. No evidence of fragmentation or instability. Minimal marginal osteophytes at the talonavicular joint. ACHILLES TENDON: Intact. OTHER TENDONS: Intact. LIGAMENTS: Heterogeneity throughout the deltoid ligament as well as the anterior and posterior talofibular ligaments without significant edema, consistent with remote sprain/partial tears. JOINT FLUID AND SOFT TISSUES: No significant joint effusion. No abnormal soft tissue mass or fluid collection. PLANTAR FASCIA: Intact. SINUS TARSI AND TARSAL TUNNEL: Patent. MR/MR ankle RT wo con IMPRESSION: 1. Osteochondral lesion at the posterolateral aspect of the talar dome measuring up to 2.0 x 1.3 cm (AP x ML) with overlying articular cartilage thinning and areas of full-thickness loss as well as underlying subchondral cystic change and marrow edema. No evidence of fragmentation or instability. 2. Probable persistent, unfused medial malleolar avulsion fracture with mild marrow edema. 3. Remote sprain/partial tears of the deltoid ligament as well as the anterior and posterior talofibular ligaments. Assessment & Plan Assessment & Plan (1) Osteochondral lesion of talar dome: Code(s): M89.9 - Disorder of bone, unspecified; M94.9 - Disorder of cartilage, unspecified (2) Closed avulsion fracture of right ankle with delayed healing: Code(s): S82.891G - Other fracture of right lower leg, subsequent encounter for closed fracture with delayed healing Plan Discussed MRI with Dr. Self and then discussed with patient. Would likely need surgical management, scope/clean out vs allograft? I would refer him to Dr. Rodriguez at [facility]. We thought about option for PRP injection but I would recommend having this done under guidance or in the OR, but cannot guarantee how much it would help. I agree with investigating his surgical options and make decision based on which would allow him to return back to running after. He does understand prognosis is guarded (in terms of return to activity) if non surgical management is chosen. Still no running or any activity if with pain, at least until he sees Dr. Rodriguez. Can do leg exercises seated or laying down, or can attempt elliptical if not painful. Wear aircast for support if will be up and about. Assessment and plan discussed with patient, and patient was agreeable. All questions were answered thoroughly. Total of 45 minutes spent today including chart review, results review, history taking, physical examination, discussion of assessment and plan, and coordination of care. [ ] Natasha Morohco MD, EUGENIA Board Certified, [place] [employer] and Rehabilitation (ABPMR) Board Certified, [place] Board [employer] Electro[employer] (ABEM) Orders: Referrals Orthopedics Referral M89.9 - Disorder of bone, unspecified, M94.9 - Disorder of cartilage, unspecified, S82.891G - Other fracture of right lower leg, subsequent encounter for closed fracture with delayed healing Coding Level of Care Code Est Pt Level 5 (97317) Diagnoses Osteochondral lesion of talar dome M89.9; M94.9 Closed avulsion fracture of right ankle with delayed healing S82.891G
[2023-11-30 11:02] VITALS: BMI 26.8
== END 2023-11-30 11:53 | disposition home or self-care (01) ==
PROVIDERS: PCP Nurse Practitioner Family; Visit Provider Physical Medicine & Rehabilitation
DX: M89.9 Disorder of bone, unspecified (principal); M94.9 Disorder of cartilage, unspecified; S82.891G Other fracture of right lower leg, subsequent encounter for closed fracture with delayed healing
CPT/HCPCS: 99215

== ENCOUNTER → 2023-11-30 10:48 | Outpatient (BNVA) | payer OTHER, SELFPAY | PROVIDERS: PCP Nurse Practitioner Family; Visit Provider Physical Medicine & Rehabilitation ==

== ENCOUNTER 2024-01-30 06:01 | Outpatient (REF) | payer OTHER, SELFPAY ==
[2024-01-30 11:46] LABS: MANUAL DIFF FLAG NO
[2024-01-30 12:00] LABS: Appearance Urine Clear; Color Urine Yellow; Glucose Urine UA Negative (Negative); Leukocyte Esterase Urine Negative (Negative); Nitrite Urine Negative (Negative); Specific Gravity - Urine 1.015 (1.005-1.025); Urine Blood Negative (Negative); Urine Ketones Negative (Negative); Urine Protein Negative (Neg-Trace)
[2024-01-30 12:18] LABS: Basophils Percent Auto 0.7 % (0-2); Eosinophils Absolute Auto 0.1 X10*3/uL (0.0-0.4); Eosinophils Percent Auto 1.8 % (0-4); Hematocrit 52.5 % (42.0-52.0); Hemoglobin 17.2 g/dl (14.0-18.0); Imm Gran Abs Auto 0.01 X10*3/uL (0.00-0.03); Imm Gran Pct Auto 0.2 % (0.0-0.4); Lymphocytes Absolute Auto 1.6 X10*3/uL (1.2-4.9); Lymphocytes Percent Auto 36.7 % (20-40); Mean Corpuscular HGB Conc 32.8 g/dl (31.0-36.0); Mean Corpuscular Hemoglobin 29.1 pg (27.0-33.0); Mean Corpuscular Volume 88.8 fL (80.0-98.0); Mean Platelet Volume 8.8 fL (9.4-12.4); Monocytes Absolute Auto 0.4 X10*3/uL (0.1-1.2); Monocytes Percent Auto 7.9 % (2-11); Neutrophils Absolute Auto 2.3 x10*3/uL (2.0-8.3); Neutrophils Percent Auto 52.7 % (45-73); Platelet Count 255 X10*3/uL (160-400); Red Blood Count 5.91 X10*6/uL (4.60-5.80); Red Cell Distribution Width 12.5 % (11.0-16.0); White Blood Count 4.4 X10*3/uL (4.8-10.8)
[2024-01-30 13:03] LABS: Alanine Aminotransferase 38 U/L (0-40); Albumin Level 4.4 g/dL (3.5-5.0); Alkaline Phosphatase 55 U/L (39-117); Anion Gap 11 (12-20); Aspartate Amino Transferase 25 U/L (5-37); Bilirubin Total 0.8 mg/dL (0.0-1.0); Blood Urea Nitrogen 16 mg/dL (9-16); Calcium 9.3 mg/dL (8.4-10.2); Carbon Dioxide 28 mmol/L (22-29); Chloride 106 mmol/L (96-108); Cholesterol 211 mg/dL (<200); Estimated Glomerular Filt Rate > 60; Glucose Fasting 99 mg/dL (60-99); HDL Cholesterol 67 mg/dL (>40); LDL Cholesterol Calculated 135 mg/dL (<100); Potassium 3.9 mmol/L (3.3-5.1); Sodium 141 mmol/L (135-145); Total Protein 7.1 g/dL (6.5-8.0); Triglycerides 46 mg/dL (<150)
[2024-01-30 13:24] LABS: TSH reflex Free T4 1.09 uIU/mL (0.32-4.0)
== END 2024-01-30 06:02 | disposition home or self-care (01) ==
LOC: HO.HMGCLDS 06:01
PROVIDERS: PCP Nurse Practitioner Family; Visit Provider Nurse Practitioner Family
DX: Z00.00 Encounter for general adult medical examination without abnormal findings (principal); Z13.6 Encounter for screening for cardiovascular disorders
CPT/HCPCS: 36415; 80053; 80061; 81003; 84443; 85025

== ENCOUNTER 2024-05-30 11:29 | Outpatient (AMB) | payer BC, SELFPAY ==
--- NOTE | 2024-05-30 11:33 | MHC.PC.OV ---
Vital Signs 05/30/24 11:35 Height 5 ft 10 in Weight 187 lb BMI 26.8 BP 130/80 Blood Pressure Location Lt brachial Position Sitting Pulse 74 Pulse Source Pulse Oximeter Pulse Oximetry (%) 97 Oxygen Delivery Method Room Air Intake Visit Reasons: 6 mo F/U Intake Note: Patient here to update us on urology treatment. Allergies Sulfa (Sulfonamide Antibiotics) [SULFA (SULFONAMIDE ANTIBIOTICS)] Allergy (Unknown, Verified 05/30/24 11:36) UNK sulfamethoxazole Allergy (Verified 05/30/24 11:36) Unknown Tobacco use date assessed: 05/30/24 Dental Screening Dental Screen Date: 05/30/24 HPI 6 mo F/U HPI Details Anxiety: Pt reports that he has not been so stressed lately. 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 lorazepam used infrequently. Denies any SI and HI. He has a new girlfriend, this is going well, and his ankle/foot issue is getting better (running, more physically active), which helps with anxiety. [facility] Medical History Interstitial cystitis (chronic) without hematuria Closed avulsion fracture of right ankle with delayed healing Osteochondral lesion of talar dome Anxiety Surgical History Hx of shoulder surgery Social History Housing: House Patient Tobacco Use Status: Never used Tobacco e-Cigarette/Vaping Use: Never Used Second Hand Smoke Exposure: No service: No Current occupational status: employed Current occupation: [employer] Current occupational exposures/hazards: Yes Cognitive needs: No Hearing needs: No Vision needs: No Questionnaire PHQ-9 Over the last 2 weeks, how often have you been bothered by any of the following problems? 1. Little interest or pleasure in doing things: not at all 2. Feeling down, depressed, or hopeless: not at all 3. Trouble falling or staying asleep, or sleeping too much: several days 4. Feeling tired or having little energy: not at all 5. Poor appetite or overeating: not at all 6. Feeling bad about yourself - or that you are a failure or have let yourself or your family down: not at all 7. Trouble concentrating on things, such as reading the newspaper or watching television: not at all 8. Moving or speaking so slowly that other people could have noticed. Or the opposite - being so fidgety or restless that you have been moving around a lot more than usual: not at all 9. Thoughts that you would be better off or of hurting yourself in some way: not at all Total score: 1 Depression Screening Interpretation: Negative Depression Screening Done: Yes 39308 - PHQ-9 Billing: Yes Source: Developed by Drs. Torrey Wong, Ariela White, Markell Foreman and colleagues, with an educational preeti from [employer]. Thrive Questionnaire Date Thrive assessed: 05/30/24 I am a: Patient What is your living situation today?: I have a steady place to live Within the past 12 months, did the food you bought not last and you didn't have the money to get more?: Never true Within the past 12 months, did you worry whether your food would run out before you got money to buy more?: Never true Do you have trouble paying for medicines?: No Do you have trouble getting transportation to medical appointments?: No Do you have trouble paying your heating and electricity bill?: No Do you have trouble taking care of your child, family member or friend?: No Do you have trouble with day-to-day activities such as bathing, preparing meals, shopping, managing finances, etc.?: No Are you currently unemployed and looking for a job?: No Are you interested in more education?: No Please select the resources that you would like help with: Housing/Residential Currently or been in a relationship where the following occur: No concerns reported THRIVE Score: 0 AUDIT C Alcohol Use Questionnaire (AUDIT-C) 1. How often do you have a drink containing alcohol?: Monthly or less 2. How many drinks containing alcohol do you have on a typical day when you are drinking?: 1 or 2 3. How often do you have six or more drinks on one occasion?: Never Total Score: 1 DEAN-7 AMB Questionnaire DEAN-7 Date DEAN - 7 assessed: 05/30/24 Feeling nervous, anxious, or on edge: 0 = Not at all Not being able to stop or control worryin = Not at all Worrying too much about different things: 0 = Not at all Trouble relaxin = Not at all Being so restless that it is hard to sit still: 0 = Not at all Becoming easily annoyed or irritable: 0 = Not at all Feeling afraid as if something awful might happen: 0 = Not at all Total DEAN-7 score (0-4 normal; 5-9 mild; 10-14 moderate; 15-21 severe): 0 Source: Developed by Drs. Torrey Wong, Ariela White, Markell Foreman and colleagues, with an educational preeti from [employer]. Review of Systems Const Reports as per HPI Physical exam (Primary Care) Vital Signs: Last Vital Signs Pulse 74 05/30/24 11:35 BP 130/80 05/30/24 11:35 Pulse Ox 97 05/30/24 11:35 Oxygen Delivery Method Room Air 05/30/24 11:35 BMI result Body Mass Index 26.8 Tobacco/Smoking Status: Tobacco use Status Tobacco use date assessed 05/30/24 05/30/24 11:39 Patient Tobacco Use Status Never used Tobacco 05/30/24 11:33 e-Cigarette/Vaping Use Never Used 05/30/24 11:33 PHQ-9: PHQ-9 Score PHQ-9: Total score 1 05/30/24 11:39 Depression Screening Interpretation: Negative Thrive Assessment: Date of Thrive Assessment Date Thrive assessed 05/30/24 05/30/24 11:39 Currently or been in a relationship where the following occur: No concerns reported Const General: cooperative Orientation/consciousness: patient oriented x3 Resp Effort & Inspection: normal respiratory effort Auscultation: clear to auscultation bilaterally Cardio Rate: regular rate Rhythm: regular rhythm Heart sounds: S1 normal heart sound present and S2 normal heart sound present Neuro General: patient oriented x3 Psych Appearance: grossly normal Mental Status: mental status grossly normal Speech and movement: Normal speech and movement present Affect: normal affect Attitude: cooperative Thought process: Normal thought process present Thought content: Normal thought content present Insight: Good insight present (Psych) Judgement: Good judgement present (Psych) Assessment and Plan Assessment & Plan (1) Anxiety: Code(s): F41.9 - Anxiety disorder, unspecified Plan: cont same regime Plan The patient agreed to the use of a medical numerical control operator for this encounter. Scribed for JOSH Ortega-DIEGO by Anjelica Sosa medical numerical control operator, on 05/30/2024 at 11:50 EST. Orders: Orders Comprehensive [place]. Panel Fast Today F41.9 - Anxiety disorder, unspecified TSH reflex Free T4 Today F41.9 - Anxiety disorder, unspecified Lipid Panel Today F41.9 - Anxiety disorder, unspecified Complete Blood Count Auto Diff Today F41.9 - Anxiety disorder, unspecified UA CC w/rflx Micro + Cult Today F41.9 - Anxiety disorder, unspecified Coding Level of Care Code Est Pt Level 3 (77208) Diagnoses Anxiety F41.9
[2024-05-30 11:35] VITALS: BP 130/80; PULSE 74; O2SAT 97; BMI 26.8
== END 2024-05-30 12:33 | disposition home or self-care (01) ==
PROVIDERS: PCP Nurse Practitioner Family; Visit Provider Nurse Practitioner Family
DX: F41.9 Anxiety disorder, unspecified (principal)
CPT/HCPCS: 99213

== ENCOUNTER 2024-08-22 15:19 | Outpatient (AMB) | payer BC, SELFPAY ==
[2024-08-22 15:24] VITALS: BP 120/80; PULSE 72; O2SAT 98; BMI 26.3
--- NOTE | 2024-08-22 15:24 | A.OFFPC_ITS ---
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 Accompanied by: Self / Same As Patient Allergies Sulfa (Sulfonamide Antibiotics) [SULFA (SULFONAMIDE ANTIBIOTICS)] Allergy (Unknown, Verified 08/22/24 15:40) UNK sulfamethoxazole Allergy (Verified 08/22/24 15:40) Unknown Medication List - Last Reconciled 08/22/24 by JOSH Gary-DIEGO cetirizine (Zyrtec) 20 mg PO BID PRN fluticasone propionate 50 mcg/actuation (Flonase Allergy Relief) 1 spray intranasal BID PRN hydroxyzine HCl 25 mg PO BEDTIME lorazepam 0.5 mg PO BEDTIME PRN 30 days naltrexone mg PO tadalafil 5 mg PO DAILY tamsulosin 0.4 mg PO BEDTIME vibegron (Gemtesa) 75 mg PO DAILY Tobacco use date assessed: 05/30/24 Dental Screening Dental Screen Date: 05/30/24 HPI Annual PE HPI Details Pt is here for a PE. Will order labs. Pt c/o cough, wheezing, and mucus production. He has been seen at urgent care and has tried antibiotics, prednisone, and cough suppressants. 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 Will order chest XR. Will send zpak and prednisone. Will keep pt out of work next week for recovery. Lab orders are already in from May [facility] Medical History Interstitial cystitis (chronic) without hematuria Closed avulsion fracture of right ankle with delayed healing Osteochondral lesion of talar dome Anxiety Surgical History Hx of shoulder surgery Social History Housing: House Patient Tobacco Use Status: Never used Tobacco e-Cigarette/Vaping Use: Never Used Second Hand Smoke Exposure: No service: No Current occupational status: employed Current occupation: [employer] Current occupational exposures/hazards: Yes Cognitive needs: No Hearing needs: No Vision needs: No Questionnaire PHQ-9 Over the last 2 weeks, how often have you been bothered by any of the following problems? 59397 - PHQ-9 Billing: Patient declined-do not bill Source: Developed by Drs. Torrey Wong, Ariela White, Markell Foreman and colleagues, with an educational preeti from [employer]. Thrive Questionnaire Date Thrive assessed: 05/30/24 I am a: Patient What is your living situation today?: I have a steady place to live Within the past 12 months, did the food you bought not last and you didn't have the money to get more?: Never true Within the past 12 months, did you worry whether your food would run out before you got money to buy more?: Never true Do you have trouble paying for medicines?: No Do you have trouble getting transportation to medical appointments?: No Do you have trouble paying your heating and electricity bill?: No Do you have trouble taking care of your child, family member or friend?: No Do you have trouble with day-to-day activities such as bathing, preparing meals, shopping, managing finances, etc.?: No Are you currently unemployed and looking for a job?: No Are you interested in more education?: No Please select the resources that you would like help with: None Currently or been in a relationship where the following occur: No concerns reported THRIVE Score: 0 DEAN-7 AMB Questionnaire DEAN-7 Date DEAN - 7 assessed: 05/30/24 Source: Developed by Drs. Torrey Wong, Markell Rogers and colleagues, with an educational preeti from [employer]. DEAN-7 Assessment Billing DEAN-7 Assessment Tool: pt declined-do not bill Review of Systems Const Denies chills and Denies fever(s) Eyes Denies blurry vision ENT Denies vertigo, Denies dizziness and Denies sore throat Card Denies chest pain at rest, Denies chest pain with activity, Denies diaphoresis, Denies dyspnea and Denies dyspnea on exertion Resp Reports cough, Denies dyspnea, Denies dyspnea on exertion and Reports wheezing GI Denies abdominal pain, Denies melena, Denies hematochezia, Denies constipation, Denies diarrhea and Denies loose stools Denies hematuria Musc Denies numbness and Denies tingling Skin/Breast Denies lesions Neuro Denies vertigo, Denies dizziness, Denies numbness and Denies tingling Psych Denies anxiety, Denies depression, Denies homicidal ideation, Denies suicidal ideation and Denies other (substance abuse) Aller/Immun Reports wheezing Physical exam (Primary Care) Vital Signs: Last Vital Signs Pulse 72 08/22/24 15:24 BP 120/80 08/22/24 15:24 Pulse Ox 98 08/22/24 15:24 Oxygen Delivery Method Room Air 08/22/24 15:24 BMI result Body Mass Index 26.3 Tobacco/Smoking Status: Tobacco use Status Tobacco use date assessed 05/30/24 08/22/24 15:27 Patient Tobacco Use Status Never used Tobacco 08/22/24 15:27 e-Cigarette/Vaping Use Never Used 08/22/24 15:27 Thrive Assessment: Date of Thrive Assessment Date Thrive assessed 05/30/24 08/22/24 15:27 Currently or been in a relationship where the following occur: No concerns reported Const General: cooperative Nutritional Appearance: well nourished Orientation/consciousness: patient oriented x3 HENMT Head: Yes normal to inspection, Yes normocephalic and Yes atraumatic Ears: TM's normal bilaterally Eyes General: appearance normal, both eyes and all related structures Alignment and Position: alignment normal and position normal Neck Neck: Yes normal visual inspection, Yes no lymphadenopathy and Yes supple Resp Effort & Inspection: normal respiratory effort, able to speak in complete sentences and Actively coughing Auscultation: rhonchi and wheezes expiratory wheezes Cardio Rate: regular rate Rhythm: regular rhythm Heart sounds: S1 normal heart sound present, S2 normal heart sound present and no murmurs GI Palpation (GI): Soft to palpation and nontender Auscultation: normal bowel sounds Male General Exam: Yes normal external exam Penis: normal penis Scrotum: scrotum normal, testes descended bilaterally and no inguinal hernias Testes: no testicular mass Skin Rashes: no rashes Neuro General: patient oriented x3, moves all extremities, no focal motor deficits and deep tendon reflexes 2+ bilaterally Romberg Test: Negative Psych Appearance: grossly normal Mental Status: mental status grossly normal Speech and movement: Normal speech and movement present Affect: normal affect Attitude: cooperative Thought process: Normal thought process present Thought content: Normal thought content present Insight: Good insight present (Psych) Judgement: Good judgement present (Psych) Coding Level of Care Code Est Pt Prev Care 40-64y(55871) Diagnoses Chronic cough R05.3 Encounter for routine adult physical exam with abnormal findings Z00.01 Assessment & Plan Assessment & Plan (1) Chronic cough: Code(s): R05.3 - Chronic cough Category: Medical Plan: Chest XR ordered, send zpak and prednisone (2) Encounter for routine adult physical exam with abnormal findings: Code(s): Z00.01 - Encounter for general adult medical examination with abnormal findings Category: Medical Plan The patient agreed to the use of a medical office professional instructor for this encounter. Scribed for SARAH Ortega by Anjelica Sosa medical office professional instructor, on 08/22/2024 at 15:35 EST. Orders: Orders XR chest 2V Today R05.3 - Chronic cough Medications: New azithromycin For 250 mg dose pack: take 500 mg today (day 1), then 250 mg for 4 days (days 2-5) PO 6 tabs 0RF prednisone 6 tabs for 2 days, 5 tabs for 2 days, 4 tabs for 2 days, 3t for 2d, 2t for 2d, 1t for 2d, .5t for 2d. 10 mg PO DAILY 43 tabs 0RF 14 days azithromycin For 250 mg dose pack: take 500 mg today (day 1), then 250 mg for 4 days (days 2-5) PO 6 tabs 0RF
== END 2024-08-22 16:03 | disposition home or self-care (01) ==
PROVIDERS: PCP Nurse Practitioner Family; Visit Provider Nurse Practitioner Family
DX: R05.3 Chronic cough (principal); Z00.01 Encounter for general adult medical examination with abnormal findings

== ENCOUNTER → 2024-08-22 15:19 | Outpatient (BNVA) | payer BC, SELFPAY | PROVIDERS: PCP Nurse Practitioner Family; Visit Provider Nurse Practitioner Family ==

== ENCOUNTER 2024-08-22 16:04 | Outpatient (REF) | payer BC, SELFPAY ==
--- NOTE | ~2024-08-22 | XR_ITS ---
EXAMINATION: XR CHEST CLINICAL INFORMATION: Chronic cough COMPARISON: None available. TECHNIQUE: 3 views of the chest FINDINGS: There is no gross pneumothorax. Heart size is normal. Lungs are well-inflated. No significant pleural effusion. No focal consolidation to suggest pneumonia. XR/XR chest 2V IMPRESSION: No focal consolidation to suggest pneumonia. Electronically signed by: Elaine Lezama MD 09/04/2024 06:00 AM EDT RP
== END 2024-08-22 16:05 | disposition home or self-care (01) ==
LOC: HO.HMGCX 16:04
PROVIDERS: PCP Nurse Practitioner Family; Visit Provider Nurse Practitioner Family
DX: R05.3 Chronic cough (principal)
CPT/HCPCS: 71046

== ENCOUNTER 2025-04-29 06:29 | Outpatient (REF) | payer BC, SELFPAY ==
[2025-04-29 10:07] LABS: MANUAL DIFF FLAG NO
[2025-04-29 10:08] LABS: Basophils Percent Auto 0.6 % (0-2); Eosinophils Absolute Auto 0.1 X10*3/uL (0.0-0.4); Eosinophils Percent Auto 2.6 % (0-4); Hematocrit 49.3 % (42.0-52.0); Hemoglobin 16.6 g/dl (14.0-18.0); Imm Gran Abs Auto 0.01 X10*3/uL (0.00-0.03); Imm Gran Pct Auto 0.2 % (0.0-0.4); Lymphocytes Absolute Auto 2.3 X10*3/uL (1.2-4.9); Lymphocytes Percent Auto 45.8 % (20-40); Mean Corpuscular HGB Conc 33.7 g/dl (31.0-36.0); Mean Corpuscular Hemoglobin 28.8 pg (27.0-33.0); Mean Corpuscular Volume 85.4 fL (80.0-98.0); Mean Platelet Volume 8.8 fL (9.4-12.4); Monocytes Absolute Auto 0.3 X10*3/uL (0.1-1.2); Monocytes Percent Auto 6.6 % (2-11); Neutrophils Absolute Auto 2.2 x10*3/uL (2.0-8.3); Neutrophils Percent Auto 44.2 % (45-73); Platelet Count 229 X10*3/uL (160-400); Red Blood Count 5.77 X10*6/uL (4.60-5.80); Red Cell Distribution Width 12.3 % (11.0-16.0)
[2025-04-29 10:30] LABS: Appearance Urine Clear; Color Urine Yellow; Glucose Urine UA Negative (Negative); Leukocyte Esterase Urine Negative (Negative); Nitrite Urine Negative (Negative); PH 6.5 (5.0-9.0); Specific Gravity - Urine 1.025 (1.005-1.025); Urine Blood Negative (Negative); Urine Ketones Negative (Negative); Urine Protein Negative (Neg-Trace)
[2025-04-29 10:42] LABS: Alanine Aminotransferase 78 U/L (0-40); Albumin Level 4.4 g/dL (3.5-5.0); Alkaline Phosphatase 52 U/L (39-117); Anion Gap 12 (12-20); Aspartate Amino Transferase 39 U/L (5-37); Bilirubin Total 0.9 mg/dL (0.0-1.0); Blood Urea Nitrogen 21 mg/dL (9-16); Calcium 9.3 mg/dL (8.4-10.2); Carbon Dioxide 25 mmol/L (22-29); Chloride 107 mmol/L (96-108); Cholesterol 247 mg/dL (<200); Estimated Glomerular Filt Rate > 60; Glucose Fasting 101 mg/dL (60-99); HDL Cholesterol 61 mg/dL (>40); LDL Cholesterol Calculated 172 mg/dL (<100); Sodium 140 mmol/L (135-145); TSH reflex Free T4 1.65 uIU/mL (0.32-4.0); Total Protein 6.7 g/dL (6.5-8.0); Triglycerides 74 mg/dL (<150)
== END 2025-04-29 06:30 | disposition home or self-care (01) ==
LOC: HO.HMGCLDS 06:29
PROVIDERS: PCP Nurse Practitioner Family; Visit Provider Nurse Practitioner Family
DX: F41.9 Anxiety disorder, unspecified (principal); Z13.6 Encounter for screening for cardiovascular disorders
CPT/HCPCS: 36415; 80053; 80061; 81003; 84443; 85025

== ENCOUNTER 2025-06-23 08:44 | Outpatient (REF) | payer BC, SELFPAY ==
--- NOTE | ~2025-06-23 | US_ITS ---
CLINICAL HISTORY: R74.8 - Abnormal levels of other serum enzymes US abdomen complete Comparison: None provided Findings: The visualized pancreas is normal. The aorta and inferior vena cava are normal caliber. The liver is normal in size and echotexture. There is no intrahepatic bile duct dilatation. The common duct is 2 mm in diameter. The gallbladder is normal. There is no sonographic Mireles sign. The main portal vein is antegrade. The right kidney is 11.6 cm in length. The left kidney is 12.9 cm in length. The spleen is normal. No ascites. IMPRESSION: 1. Borderline hepatomegaly. This document has been electronically signed by: Jayshree Hernandez MD on 06/23/2025 16:13:10
--- OUTSIDE RECORDS SUMMARY | 2025-06-23 09:06 | XMS_ITS | Clinical Summary ---
Author Organization [facility] Address [address] [place] [phone] Phone Care Team Providers Care Bingo Caller Name Role Phone Puneet Tesfaye NP Primary Care Provider + [phone] Allergies Active Allergy Reactions Criticality Noted Date Comments Sulfa (Sulfonamide Antibiotics) Unknown 11/2024 Medications cetirizine (ZyrTEC) 10 mg tablet Take 1 tablet (10 mg total) by mouth 1 (one) time each day. Active tadalafiL (CIALIS) 5 mg tablet Take 1 tablet (5 mg total) by mouth 1 (one) time each day. Active hydrOXYzine HCL (ATARAX) 25 mg tablet 1 tablet (25 mg total) at bedtime. Active tamsulosin (FLOMAX) 0.4 mg 24 hr capsule Take 1 capsule (0.4 mg total) by mouth 1 (one) time each day. Capsules should be taken 30 minutes following the same meal each day. Active naltrexone 4.5 mg capsule Take 1 capsule (4.5 mg total) by mouth at bedtime. Active vibegron (Gemtesa) 75 mg tablet tablet Take 1 tablet (75 mg total) by mouth 1 (one) time each day. Active fluticasone propionate (FLONASE) 50 mcg/actuation nasal spray Administer 1 spray into each nostril 1 (one) time each day. Shake gently. Before first use, prime pump. After use, clean tip and replace cap. Active LORazepam (ATIVAN) 0.5 mg tablet Take 1 tablet (0.5 mg total) by mouth every 6 (six) hours if needed for anxiety. Active Encounters Date Type Department Care Team Description 05/19/2025 11:00 AM EDT - 05/19/2025 12:30 PM EDT Surgery Main OR [address] [place] [address] Bolivar Rios MD FULL IMPLANT SACRAL NEUROMODULATOR [72404 (CPT ) +1 more] 05/19/2025 10:28 AM EDT Anesthesia Event Main OR [address] [place] [address] Skyler Mauricio DO 05/19/2025 8:38 AM EDT - 05/19/2025 12:38 PM EDT Hospital Encounter Main OR [address] [place] [address] Bolivar Rios MD Discharge Disposition: Home or Self Care 05/19/2025 7:30 AM EDT - 05/19/2025 11:59 PM EDT Hospital Encounter Xray [address] [place] [address] Pain Discharge Disposition: Home or Self Care from Last 3 Months Surgical History Surgery Date Site/Laterality Comments SHOULDER SURGERY Left Medical History Medical History Date Comments Overactive bladder Anxiety Social History Tobacco Use Types Packs/Day Years Used Date Smoking Tobacco: Never Smokeless Tobacco: Never Tobacco Cessation:Counseling Given: Not Answered Alcohol Use Standard Drinks/Week Comments Not Asked 0 (1 standard drink = 0.6 oz pur e alcohol) rarely Interpersonal Safety Answer Date Record ed Physical Abuse 05/19/2025 Verbal Abuse 05/19/2025 Sex and Gender Information Value Date Recorded Sex Assigned at Male 05/08/2025 2:25 PM EDT Legal Sex Male 10:14 AM EDT Gender Identity Not on file Sexual Orientation Not on file Obstetrics History Last Filed Vital Signs Vital Sign Reading Time Taken Comments Blood Pressure 110/75 05/19/2025 12:04 PM EDT Pulse 69 05/19/2025 12:04 PM EDT Temperature 36.6 C (97.9 F) 05/19/2025 11:33 AM EDT Respiratory Rate 16 05/19/2025 11:33 AM EDT Oxygen Saturation 96% 05/19/2025 12:04 PM EDT Inhaled Oxygen Concentration - - Weight 83.9 kg (185 lb) 05/19/2025 8:48 AM EDT Height 177.8 cm (5' 10 ) 05/19/2025 8:48 AM EDT Body Mass Index 26.54 05/19/2025 8:48 AM EDT Plan of Treatment Health Maintenance Due Date Last Done Comments DTaP,Tdap,and Td Vaccines (1 - Tdap) 2003 Hepatitis B Vaccines (1 of 3 - 19+ 3-dose series) 2003 COVID-19 Vaccine (2023-2 5 season) 2024 Depression Screening 11/06/2024 Cholesterol Screening (Lipid Panel) 05/07/2025 HIV Screening 05/07/2025 Hepatitis C Screening 05/07/2025 Social Influencers of Health Screening 05/07/2025 Influenza Vaccine (#1) 2025 HIB Vaccines Aged Out No longer eligi ble based on patient's age to complete this topic HPV Vaccines Aged Out No longer eligi ble based on patient's age to complete this topic Hepatitis A Vaccines Aged Out No long er eligible based on patient's age to complete this topic IPV Vaccines Aged Out No longer eligi ble based on patient's age to complete this topic MMR Vaccines Aged Out No longer eligi ble based on patient's age to complete this topic Meningococcal ACWY Vaccine Aged Out N o longer eligible based on patient's age to complete this topic Meningococcal B Vaccine Aged Out No l onger eligible based on patient's age to complete this topic Pneumococcal Vaccine: Pediat rics (0 to 5 Years) and At-Risk Patients (6 to 49 Years) Aged Out No longer eligible b ased on patient's age to complete this topic RSV Immunization Patients Un carolina 20 months Aged Out No longer eligible b ased on patient's age to complete this topic Varicella Vaccines Aged Out No longer eligible based on patient's age to complete this topic Medical Devices Implanted Type Area Mine Engineer Device Identifier Shelf Expiration Date Model / Serial / Lot System Interstim X Recharge-Free F/Bladder/Bowel Cntrl - [id number] - [id number] Implanted:Qty: 1 on 05/19/2025 by Bolivar Rios MD at [facility] Neurostim N/A: Back [employer] 08/19/2026 [id number] / [id number] / NONE Description:RIGHT BUTTOCK Kit Mri Lead Interstim 4.32-28cm - Snone - [id number] Implanted:Qty: 1 on 05/19/2025 by Bolivar Rios MD at [facility] Neurostim N/A: Back [employer] 10/18/2026 [id number] / NONE / [id number] Description:RIGHT S-3 Procedures Procedure Name Priority Date/Time Associated Diagnosis Comments XR PELVIS 1-2 VIEWS Routine 05/19/2025 11:10 AM EDT Pain IA ANALYSIS IMPLANTED NEUROSTIM PULSE GENERATOR SYSTEM COMPLEX/PROGRAMIN G 05/19/2025 10:28 AM EDT Urgency of urination Case Notes C-ARM IA INS/REPL SU/SACRAL/GASTR IC NSTIM PG/REC REQ POCKET CREATION/CONN 05/19/2025 10:28 AM EDT Urgency of urination Case Notes C-ARM from Last 3 Months Results * XR Pelvis 1-2 Views (05/19/2025 11:10 AM EDT) Anatomical Region Laterality Modality Body, Pelvis Radio Fluoroscop y 05/20/2025 8:15 AM EDT Impressions 05/20/2025 8:16 AM EDT Placement of an electrode projecting over the right side of the sacrum is documented. Code 25584 The dose-area product for this procedure was 3.8931 Gy*cm2. PQRI CPT II G9500 -------- FINAL REPORT -------- Dictated By: Ted Pham Dictated Date: 05/20/2025 08:15 ET Assigned Physician: Ted Pham Reviewed and Electronically Signed By: Ted Pham Signed Date: 05/20/2025 08:16 ET Workstation ID: [id number] Transcribed By: Self Edit Transcribed Date: 05/20/2025 08:15 ET Narrative 05/20/2025 8:16 AM EDT HISTORY: The patient is a 39-year-old male undergoing placement of a sacral neuromodulator device. FINDINGS: 2 fluoroscopic spot radiographs of the right side of the pelvis is submitted. The study documents placement of an electrode projecting over the right side of the sacrum. Procedure Note Ted Pham MD - 05/20/2025 HISTORY: The patient is a 39-year-old male undergoing placement of asacral neuromodulator device. FINDINGS: 2 fluoroscopic spot radiographs of the right side of the pelvisis submitted. The study documents placement of an electrode projectingover the right side of the sacrum. IMPRESSION: Placement of an electrode projecting over the right side of the sacrum isdocumented. Code 92359 The dose-area product for this procedure was 3.8931 Gy*cm2. PQRI CPT II G9500 -------- FINAL REPORT -------- Dictated By: Ted Pham Dictated Date: 05/20/2025 08:15 ET Assigned Physician: Ted Pham Reviewed and Electronically Signed By: Ted Pham Signed Date: 05/20/2025 08:16 ET Workstation ID: [id number] Transcribed By: Self Edit Transcribed Date: 05/20/2025 08:15 ET Bolivar Rios MD IMG XR PROCEDURES Fi nal Result from Last 3 Months Insurance [facility] Care Teams Bingo Caller Relationship Specialty Start Date End Date Puneet Tesfaye NP [address], [place] PCP - General Family Medicine 05/08/25
[2025-06-23 10:50] LABS: HBS Num1 182.65 mIU/mL (0-7.99); HBc Num1 0.05 S/CO (0.00-0.79); HBsAGNum1 0.46 S/CO (0.00-0.99); Hepatitis A Antibody IgM 0.19 Index (0-0.79); Hepatitis B Surface Antigen Negative (Negative); ~HepC Num1 0.12 S/CO (0.00-0.79); ~Hepatitis A Antibody IgM Nonreactive (Nonreactive); ~Hepatitis B Surface Antibody REACTIVE (Nonreactive); ~Hepatitis C Antibody Nonreactive (Nonreactive)
[2025-06-23 11:08] LABS: Alanine Aminotransferase 51 U/L (0-40); Albumin Level 4.8 g/dL (3.5-5.0); Alkaline Phosphatase 55 U/L (39-117); Anion Gap 16 (12-20); Aspartate Amino Transferase 29 U/L (5-37); Blood Urea Nitrogen 20 mg/dL (9-16); Calcium 9.6 mg/dL (8.4-10.2); Carbon Dioxide 28 mmol/L (22-29); Chloride 107 mmol/L (96-108); Cholesterol 239 mg/dL (<200); Estimated Glomerular Filt Rate > 60; HDL Cholesterol 52 mg/dL (>40); Potassium 4.6 mmol/L (3.3-5.1); Sodium 146 mmol/L (135-145); Total Protein 7.3 g/dL (6.5-8.0); Triglycerides 67 mg/dL (<150)
== END 2025-06-23 08:45 | disposition home or self-care (01) ==
LOC: HO.HMGCX 08:44
PROVIDERS: PCP Nurse Practitioner Family; Visit Provider Nurse Practitioner Family
DX: Z11.59 Encounter for screening for other viral diseases (principal); R74.8 Abnormal levels of other serum enzymes; E78.5 Hyperlipidemia, unspecified
CPT/HCPCS: 36415; 76700; 80053; 80061; 86704; 86706; 86709; 86803; 87340

== ENCOUNTER → 2025-06-23 08:53 | Outpatient (BNV) | payer BC, SELFPAY | PROVIDERS: PCP Nurse Practitioner Family; Visit Provider Radiology Diagnostic Radiology | DX: R74.8 Abnormal levels of other serum enzymes (principal) | CPT/HCPCS: 76700 ==

== ENCOUNTER 2025-08-30 07:04 | Outpatient (REF) | payer BC, SELFPAY ==
--- OUTSIDE RECORDS SUMMARY | 2025-08-30 07:08 | XMS_ITS | Clinical Summary ---
Author Organization [facility] Address [address] [place] [phone] Phone Care Team Providers Care District Wildlife Manager Name Role Phone Puneet Tesfaye NP Primary Care Provider + [phone] Allergies Active Allergy Reactions Criticality Noted Date [...] (six) hours if needed for anxiety. Active Surgical History Surgery Date Site/Laterality Comments SHOULDER [...] Safety Answer Date Record ed Physical Abuse Unrecognized value 05/19/2025 Verbal Abuse Unrecognized value 05/19/2025 Sex and Gender Information Value Date [...] of 3 - 19+ 3-dose series) 2003 HPV Vaccines (1 - 3-dose SCD M series) 2011 Depression Screening 11/06/2024 Cholesterol Screening (Lipid Panel) 05/07/2025 HIV Screening 05/07/2025 Hepatitis C Screening 05/07/2025 Social Influencers of Health Screening 05/07/2025 COVID-19 Vaccine ( - 2023-2 5 season) 2025 Influenza Vaccine (#1) 2025 RSV Immunization Adult Patie nts (1 - 1-dose 75+ series) 2059 HIB Vaccines Aged Out No longer eligi [...] this topic Medical Devices Implanted Type Area A And P Technician Device Identifier Shelf Expiration Date Model / Serial / Lot System Interstim X Recharge-Free F/Bladder/Bowel Cntrl - [id number] - [id number] Implanted:Qty: 1 on 05/19/2025 by Bolivar Rios MD at [facility] Neurostim N/A: Back [employer] 08/19/2026 [id number] / [id number] / NONE Description:RIGHT BUTTOCK Kit Mri Lead Interstim 4.32-28cm - [employer]one - [id number] Implanted:Qty: 1 on 05/19/2025 by Bolivar Rios MD at [facility] Neurostim N/A: Back [employer] 10/18/2026 [id number] / NONE / [id number] Description:RIGHT S-3 Insurance Care Teams District Wildlife Manager Relationship Specialty Start Date End Date Puneet Tesfaye NP [address], [place] PCP - General Family Medicine 05/08/25
--- OUTSIDE RECORDS SUMMARY | 2025-08-30 07:08 | XMS_ITS | Data Portability ---
Author Organization [place] - [facility], Allergy Address [address] [place] [id number] Care Team Providers Care Effervescent Salts Compounder Name Role Phone GILLIAN SPRAGUE Primary Care Provider [phone] Assessment Encounter Date Assessment Date Assessment LastModified by Organization Details LastModified Time 07/16/2025 07/16/2025 The patient presents with a history of chronic sinus infections and ear symptoms, which appear to be related to allergies and environmental exposures. His current symptoms are well-controlled, and he is actively engaged in an allergy treatment program. I recommend continuing the use of Flonase and saline rinses as needed to manage nasal congestion. The patient should ensure that equipment used for saline rinses is cleaned regularly to prevent reinfection. Frequent hand washing and maintaining a clean environment at school are advised to reduce exposure to allergens and infectious agents. If symptoms worsen or recur, imaging studies or nasal endoscopy may be considered to evaluate deeper structures of the sinuses. The patient is encouraged to seek urgent care for acute infections and follow up with this office if symptoms persist despite treatment. 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 Lab None record ed. Referral None record ed. Procedures None record ed. Surgeries None record ed. Imaging None record ed. Medication Orders None record ed. Patient TargetsNo targets recorded. Patient Instructions Encounter Date Encounter Id Patient Instructions Last Modified By Organization Details Last Modified Time 07/16/2025 [id number] Continue using Flonase and saline rinses as needed. Clean equipment used for saline rinses regularly. Practice frequent hand washing and maintain a clean environment at school. Seek urgent care for acute infections. Follow up with this office if symptoms persist despite treatment. [email or web address] Not available 07/16/2025 13:37:37 Please note: Parts of this encounter note have been generated by AI based on audio conversation. Patient consent was required prior to utilizing this technology. Content review was required prior to finalizing the note. [email or web address] Not available 07/16/2025 13:37:38 Reason for Referral None Reported. Problems Name Problem SNOMED Code Status Onset Date Resolution Date Notes Provider Name and Address Organization Details Recorded Time Dysfunction of bilateral eustachian tubes 0447976348915 100 Active 2024 JAMEE CHUNG MD 100 [facility] 100, [place], [address] 13:33:03 Allergic rhinitis 31601132 Active 2024 JAMEE CHUNG MD 100 [facility] 100, [place], [address] 13:37:17 Problem Notes None recorded. Medical Equipment None Reported. Allergies Allergen ID Allergen Name Allergen Category Reaction Reaction Severity Criticality Documentation Date Start Date Code Code System Note Provider Name and Address Organization Details Recorded Time 183809 Substance with sulfonami de structure and antibacte rial mechanism of action (substanc e) medicatio n Not available Not available Not available 07/16/2025 06698 8003 SNOMED MILENA jasso [facility] 13:14:33 Medications Name Sig Start Date Stop Date Status Note LastModified by Organization Details LastModified Time prednisone 10 mg tablet TAKE 4 TABS DAILY X4 DAYS, 3 TABS X3 DAYS, 2 TABS X2 DAYS, 1 TAB X1 DAY, THEN STOP 07/16 completed Not Available Not Available Not Available azithromyci n 250 mg tablet 07/16 completed Not Available Not Available Not Available benzonatate 200 mg capsule TAKE 1 CAPSULE BY MOUTH THREE TIMES A DAY FOR COUGH FOR 7 DAYS 07/16 completed Not Available Not Available Not Available prednisone 20 mg tablet TAKE 2 TABLETS BY MOUTH EVERY DAY FOR 5 DAYS 07/16 completed Not Available Not Available Not Available lorazepam 0.5 mg tablet TAKE 1 TABLET BY MOUTH AT BEDTIME NEEDED FOR ANXIETY active Not Available Not Available No t Available tamsulosin 0.4 mg capsule TAKE 1 CAPSULE BY MOUTH AT BEDTIME active Not Available Not Available No t Available benzonatate 100 mg capsule TAKE 1 CAPSULE BY MOUTH THREE TIMES A DAY 07/16 completed Not Available Not Available Not Available econazole nitrate 1 % topical cream APPLY TO AFFECTED AREA TWICE A DAY active Not Available Not Available No t Available prednisone 50 mg tablet TAKE 1 TABLET BY MOUTH DAILY FOR 6 DAYS 07/16 completed Not Available Not Available Not Available oxybutynin chloride ER 5 mg tablet,exte nded release 24 hr TAKE 1 TABLET BY MOUTH EVERY DAY 07/16 completed Not Available Not Available Not Available hydroxyzine HCl 25 mg tablet TAKE 1 TABLET BY MOUTH AT BEDTIME active Not Available Not Available No t Available nystatin 100,000 unit/gram topical powder APPLY TOPICALLY TWICE DAILY TO AFFECTED AREA active Not Available Not Available No t Available albuterol sulfate HFA 90 mcg/actuati on aerosol inhaler TAKE 2 PUFFS INHALED EVERY 4 TO 6 HOURS NEEDED FOR SHORTNESS OF BREATH active Not Available Not Available No t Available amoxicillin 875 mg-potassiu m clavulanate 125 mg tablet TAKE 1 TABLET BY MOUTH TWICE A DAY WITH FOOD 07/16 completed Not Available Not Available Not Available ciprofloxac in 0.3 %-dexametha sone 0.1 % ear drops,suspe nsion PLACE 4 DRIPS INTO THE AFFECTED EAR (S) TWICE DAILY FOR 7-10 DAYS. 07/16 completed Not Available Not Available Not Available tadalafil active Not Available Not Brooklynn ilable Not Available Zyrtec 10 mg capsule Take by oral route. active Not Available Not Available No t Available Flonase Allergy Relief active Not Available Not Available Not Available Gemtesa 75 mg tablet TAKE 1 TABLET BY MOUTH EVERY DAY active Not Available Not Available No t Available Vitals Date Recorded Body height Body mass index (BMI) Body weight Provider Name and Address Organization Details Last Updated DateTime 07/16/2025 177.8 cm 25.8 kg/m2 09423.63 g MILENA SALCIDO [place] - [facility] 07/16/2025 13:14:23 Social History None recorded. Functional Status None recorded. Mental Status None recorded. Family History Nothing Reported. Medical History No medical history recorded. Past Encounters Encounter ID Performer Location Encounter Start Date Encounter Closed Date Diagnosis/Indication Diagnosis SNOMED-CT Code Diagnosis ICD10 Code Diagnosis IMO Codes Diagnosis Note [id number] JAMEE CHUNG MD [facility] [address] [address] 07/16/2025 12:41:59 07/16/2025 13:40:24 Dysfunction of bilateral eustachian tubes 8809040724 239524 H69.93 35202323 Allergic rhinitis 002863 04 J30.9 8305247 Health Concerns Section Related Observation LastModified by Organization Detai ls LastModified Time None Recorded Concern Status LastModified by Organization Details LastModified Time None Recorded Advance Directives Directive None Recorded Payers Insurance Date Sequence Insurance Name Policy Number Policy May Covered Member ID May Member ID Guarantor Name 07/16/[address] [facility]) [id number] Johnathon Quezada [id number] Johnathon Quezada Notes Date Note Type Note Provider Name and Address Organization Details Recorded Time 07/16/2025 text/html ear, nasal congestion Johnathon Quezada is a 40-year-old male who presents for evaluation of ear and sinus symptoms. He reports a history of blocked ears, popping sensations, and fluid buildup, which began in December. One ear was worse than the other, and he experienced temporary hearing loss in the more affected ear. He completed a course of prednisone and has been using a daily regimen of Sudafed, Zyrtec, Mucinex, Flonase, and Astepro, but continues to experience popping in the ears. He has a history of chronic sinus infections, typically occurring four times per year, often requiring urgent care visits and treatment with AMOXICILLIN or prednisone. He has been receiving allergy shots for pollen, dust, and dust mites, which have shown improvement in his symptoms. 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 He uses air purifiers and ionizers at home and in his classroom to mitigate allergens. Currently, his ears and sinuses are asymptomatic, though he experiences mild congestion in the mornings. JAMEE CHUNG MD [address] [place] [address], [phone], [facility] - [facility] 07/16/2025 13:40:39
[2025-08-30 11:30] LABS: Alanine Aminotransferase 62 U/L (0-40); Albumin Level 4.4 g/dL (3.5-5.0); Alkaline Phosphatase 60 U/L (39-117); Anion Gap 12 (12-20); Aspartate Amino Transferase 45 U/L (5-37); Blood Urea Nitrogen 22 mg/dL (9-16); Calcium 9.2 mg/dL (8.4-10.2); Carbon Dioxide 28 mmol/L (22-29); Chloride 107 mmol/L (96-108); Cholesterol 188 mg/dL (<200); Estimated Glomerular Filt Rate > 60; HDL Cholesterol 49 mg/dL (>40); Potassium 4.7 mmol/L (3.3-5.1); Sodium 142 mmol/L (135-145); Total Protein 6.7 g/dL (6.5-8.0); Triglycerides 72 mg/dL (<150)
== END 2025-08-30 07:05 | disposition home or self-care (01) ==
LOC: HO.HMGCLDS 07:04
PROVIDERS: PCP Nurse Practitioner Family; Visit Provider Nurse Practitioner Family
DX: E78.5 Hyperlipidemia, unspecified (principal)
CPT/HCPCS: 36415; 80053; 80061

== ENCOUNTER 2025-10-01 11:38 | Outpatient (REF) | payer BC, SELFPAY ==
[2025-10-01 14:38] LABS: Alanine Aminotransferase 70 U/L (0-40); Albumin Level 4.5 g/dL (3.5-5.0); Alkaline Phosphatase 56 U/L (39-117); Aspartate Amino Transferase 37 U/L (5-37); Total Protein 6.8 g/dL (6.5-8.0)
[2025-10-02 04:57] LABS: HBS Num1 181.65 mIU/mL (0-7.99); HBc Num1 0.10 S/CO (0.00-0.79); HBsAGNum1 0.38 S/CO (0.00-0.99); Hepatitis A Antibody IgM 0.16 Index (0-0.79); Hepatitis B Surface Antigen Negative (Negative); ~HepC Num1 0.13 S/CO (0.00-0.79); ~Hepatitis A Antibody IgM Nonreactive (Nonreactive); ~Hepatitis B Surface Antibody REACTIVE (Nonreactive); ~Hepatitis C Antibody Nonreactive (Nonreactive)
== END 2025-10-01 11:39 | disposition home or self-care (01) ==
LOC: HO.HMGCLDS 11:38
PROVIDERS: PCP Nurse Practitioner Family; Visit Provider Nurse Practitioner Family
DX: R74.8 Abnormal levels of other serum enzymes (principal)
CPT/HCPCS: 36415; 80076; 86704; 86706; 86709; 86803; 87340

== ENCOUNTER 2025-10-07 11:04 | Outpatient (AMB) | payer BC, SELFPAY ==
--- NOTE | 2025-10-07 11:06 | MHC.PC.OV ---
Vital Signs 10/07/25 11:07 Height 5 ft 10 in Weight 182 lb BMI 26.1 BP 120/84 Blood Pressure Location Lt brachial Position Sitting Pulse 61 Pulse Source Pulse Oximeter Pulse Oximetry (%) 98 Oxygen Delivery Method Room Air Intake Visit Reasons: Annual PE Director Of Digital Technology Required: No Accompanied by: Self / Same As Patient Allergies Sulfa (Sulfonamide Antibiotics) (SULFA (SULFONAMIDE ANTIBIOTICS)) Allergy (Unknown, Verified 10/07/25 11:07) UNK sulfamethoxazole Allergy (Verified 10/07/25 11:07) Unknown Medication List - Last Reconciled 10/07/25 by RAJEEV GaryP- cetirizine (Zyrtec) 20 mg PO BID PRN fluticasone propionate 50 mcg/actuation (Flonase Allergy Relief) 1 spray intranasal BID PRN hydroxyzine HCl 25 mg PO BEDTIME lorazepam 0.5 mg PO BEDTIME PRN 30 days naltrexone mg PO tadalafil 5 mg PO DAILY tamsulosin 0.4 mg PO BEDTIME vibegron (Gemtesa) 75 mg PO DAILY Tobacco use date assessed: 10/07/25 Dental Screening Dental Screen Date: 10/07/25 Did you have a dental visit in the last 12 months?: Yes Did you have a dental problem in the last 6 months where you did not have access to dental care?: No Was dental information given to patient?: Patient has dentist HPI Annual PE HPI Details History of Present Illness The patient is a 40 year old individual presenting for review of recent laboratory results. Recent labs revealed an elevated ALT and a lipase level over 200. The patient has a history of epigastric discomfort but denies any current abdominal pain. An abdominal ultrasound showed hepatomegaly. The patient denies a family history of pancreatic cancer or pancreatitis and does not drink alcohol often. The patient still has the gallbladder. 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 The patient has a history of painful bladder syndrome, also known as interstitial cystitis, and is being followed by urology. Health Maintenance - For management of elevated lipoprotein A, the patient has declined statin therapy and will initiate Riverside-Bergamot 1000 mg daily. Social History - Substance Use: The patient does not drink alcohol often. - Life Events: The patient is getting in the near future and reports being excited. Review of Systems - General: Reports feeling well overall. - Cardiovascular: Denies chest pain. - Respiratory: Denies shortness of breath. - Gastrointestinal: Denies current abdominal pain, blood in stool, constipation, or diarrhea. - Genitourinary: History of painful bladder syndrome. - Psychiatric: Denies suicidal ideation or homicidal ideation. Physical Exam General: Cooperative, healthy appearing, comfortable, no acute distress and well developed Orientation: Patient oriented x3 Limitations: No limitations Head: Normal to inspection Ears: Hearing grossly normal bilaterally Nose: Normal external nose present Face and sinus: Normal facial exam Eyes: Appearance normal, both eyes and all related structures Neck: Normal visual inspection and Yes full ROM Respiratory: Normal respiratory effort and able to speak in complete sentences. Clear to auscultation bilaterally Cardiovascular: Regular rate and rhythm. Normal S1 and S2 GI: Normal to inspection. Soft to palpation and nontender : Testicles without masses/lesions and no hernias appreciated. History of painful bladder syndrome or IC, seeing urology Skin: No rashes or lesions noted Neuro: Patient oriented x3 Extremities: Normal to inspection Results - Labs: Recent labs showed elevated ALT, lipase over 200, and elevated lipoprotein A. - Imaging: An abdominal ultrasound revealed some hepatomegaly. Plan 1. Elevated Aminotransferase Levels And Hepatomegaly Given the findings of elevated ALT and hepatomegaly on a prior abdominal ultrasound, a CT scan of the abdomen will be ordered for further evaluation. Labs will be repeated in a couple of months. 2. Hyperlipasemia The patient's lipase was elevated to over 200. The patient denies current symptoms, but this will be further investigated with the planned abdominal CT scan and repeat labs in a couple of months. 3. Elevated Lipoprotein(A) The patient is not interested in statin therapy for elevated lipoprotein A. The patient will begin taking Riverside-Bergamot 1000 mg daily. 4. Interstitial Cystitis The patient has a history of painful bladder syndrome/interstitial cystitis and is established with urology for management. Continue follow-up with urology as needed. Discussion Notes I discussed the recent lab findings, including the elevated ALT, lipase over 200, and elevated lipoprotein A. I also reviewed the prior abdominal ultrasound result showing hepatomegaly. To further evaluate these findings, I recommended a CT scan of the abdomen and a repeat of labs in a couple of months, and the patient agreed. We discussed the elevated lipoprotein A, and I explained that the patient is not interested in statin therapy. The patient will pursue an alternative treatment with Riverside-Bergamot 1000 mg daily. We acknowledged that the patient's history of painful bladder syndrome is being managed by a urologist. Patient Instructions - Proceed with getting a CT scan of your abdomen as ordered to look more closely at your liver and pancreas. - Return to the lab in about 2 months to have your blood work repeated. - You can start taking Riverside-Bergamot 1000 mg once a day for your elevated lipoprotein A level. - Continue to see your urologist for your painful bladder syndrome (IC). [facility] Medical History Dysfunction of eustachian tube Overactive bladder Interstitial cystitis (chronic) without hematuria Closed avulsion fracture of right ankle with delayed healing Osteochondral lesion of talar dome Anxiety Surgical History Hx of shoulder surgery Social History Housing: House Patient Tobacco Use Status: Never used Tobacco e-Cigarette/Vaping Use: Never Used Second Hand Smoke Exposure: No service: No Current occupational status: employed Current occupation: [employer] Current occupational exposures/hazards: Yes Cognitive needs: No Hearing needs: No Vision needs: No Questionnaire PHQ-9 Over the last 2 weeks, how often have you been bothered by any of the following problems? 1. Little interest or pleasure in doing things: not at all 2. Feeling down, depressed, or hopeless: not at all 3. Trouble falling or staying asleep, or sleeping too much: several days 4. Feeling tired or having little energy: not at all 5. Poor appetite or overeating: not at all 6. Feeling bad about yourself - or that you are a failure or have let yourself or your family down: not at all 7. Trouble concentrating on things, such as reading the newspaper or watching television: not at all 8. Moving or speaking so slowly that other people could have noticed. Or the opposite - being so fidgety or restless that you have been moving around a lot more than usual: not at all 9. Thoughts that you would be better off or of hurting yourself in some way: not at all Total score: 1 Depression Screening Interpretation: Negative Depression Screening Done: Yes 02990 - PHQ-9 Billing: Yes Source: Developed by Drs. Torrey Wong, Ariela White, Markell Foreman and colleagues, with an educational preeti from [employer]. Thrive Questionnaire Date Thrive assessed: 05/30/24 I am a: Patient What is your living situation today?: I have a steady place to live Within the past 12 months, did the food you bought not last and you didn't have the money to get more?: Never true Within the past 12 months, did you worry whether your food would run out before you got money to buy more?: Never true Do you have trouble paying for medicines?: No Do you have trouble getting transportation to medical appointments?: No Do you have trouble paying your heating and electricity bill?: No Do you have trouble taking care of your child, family member or friend?: No Do you have trouble with day-to-day activities such as bathing, preparing meals, shopping, managing finances, etc.?: No Are you currently unemployed and looking for a job?: No Are you interested in more education?: No Please select the resources that you would like help with: None Currently or been in a relationship where the following occur: No concerns reported THRIVE Score: 0 AUDIT C Alcohol Use Questionnaire (AUDIT-C) 1. How often do you have a drink containing alcohol?: Monthly or less 2. How many drinks containing alcohol do you have on a typical day when you are drinking?: 1 or 2 3. How often do you have six or more drinks on one occasion?: Never Total Score: 1 Score Reviewed/Action Taken: Yes DEAN-7 AMB Questionnaire DEAN-7 Date DEAN - 7 assessed: 10/07/25 Feeling nervous, anxious, or on edge: 0 = Not at all Not being able to stop or control worryin = Not at all Worrying too much about different things: 1 = Several days Trouble relaxin = Not at all Being so restless that it is hard to sit still: 0 = Not at all Becoming easily annoyed or irritable: 0 = Not at all Feeling afraid as if something awful might happen: 0 = Not at all Total DEAN-7 score (0-4 normal; 5-9 mild; 10-14 moderate; 15-21 severe): 1 Source: Developed by Drs. Torrey Wong, Ariela White, Markell Foreman and colleagues, with an educational preeti from [employer]. DEAN-7 Assessment Billing DEAN-7 Assessment Tool: DEAN-7 Assessment 54884 Physical exam (Primary Care) Vital Signs: Last Vital Signs Pulse 61 10/07/25 11:07 BP 120/84 10/07/25 11:07 Pulse Ox 98 10/07/25 11:07 Oxygen Delivery Method Room Air 10/07/25 11:07 BMI result Body Mass Index 26.1 Tobacco/Smoking Status: Tobacco use Status Tobacco use date assessed 10/07/25 10/07/25 11:15 Patient Tobacco Use Status Never used Tobacco 10/07/25 11:15 e-Cigarette/Vaping Use Never Used 10/07/25 11:15 PHQ-9: PHQ-9 Score PHQ-9: Total score 1 10/07/25 11:15 Depression Screening Interpretation: Negative Thrive Assessment: Date of Thrive Assessment Date Thrive assessed 05/30/24 10/07/25 11:15 Currently or been in a relationship where the following occur: No concerns reported Coding Level of Care Code Est Pt Level 3 (32623) Est Pt Prev Care 40-64y(80085) Diagnoses Elevated liver enzymes R74.8 Dyslipidemia E78.5 Elevated lipase R74.8 Additional Codes DEAN-7 Assessment Billing - DEAN-7 Assessment Tool: DEAN-7 Assessment 34847 ([id number]) PHQ-9 - 08139 - PHQ-9 Billing: Yes ([id number]) Assessment & Plan Assessment & Plan (1) Elevated liver enzymes: Code(s): R74.8 - Abnormal levels of other serum enzymes Category: Medical (2) Dyslipidemia: Code(s): E78.5 - Hyperlipidemia, unspecified Category: Medical (3) Elevated lipase: Code(s): R74.8 - Abnormal levels of other serum enzymes Category: Medical Plan . Orders: Orders Comprehensive [place]. Panel Fast 2 Months E78.5 - Hyperlipidemia, unspecified, R74.8 - Abnormal levels of other serum enzymes UA CC w/rflx Micro + Cult 2 Months E78.5 - Hyperlipidemia, unspecified, R74.8 - Abnormal levels of other serum enzymes Lipid Panel 2 Months E78.5 - Hyperlipidemia, unspecified, R74.8 - Abnormal levels of other serum enzymes Lipase Today R74.8 - Abnormal levels of other serum enzymes Complete Blood Count Auto Diff 2 Months E78.5 - Hyperlipidemia, unspecified, R74.8 - Abnormal levels of other serum enzymes TSH reflex Free T4 2 Months E78.5 - Hyperlipidemia, unspecified, R74.8 - Abnormal levels of other serum enzymes CT abdomen w IV con Today R74.8 - Abnormal levels of other serum enzymes
[2025-10-07 11:07] VITALS: BP 120/84; PULSE 61; O2SAT 98; BMI 26.1
--- OUTSIDE RECORDS SUMMARY | 2025-10-07 13:05 | XMS_ITS | Data Portability ---
Author Organization [place] - [facility], Allergy Address [address] [place] [phone] Care Team Providers Care Marketing Operations Coordinator Name Role Phone GILLIAN SPRAGUE Primary Care Provider Assessment Encounter Date Assessment Date Assessment LastModified [...] By Organization Details Last Modified Time 07/16/2025 76268 Continue using Flonase and saline rinses as [...] Recorded Time Dysfunction of bilateral eustachian tubes 7275825890130 100 Active 2024 JAMEE CHUNG MD 100 [facility] 100, [place], [address] [facility] 13:33:03 Allergic rhinitis 94427647 Active 2024 JAMEE CHUNG MD 100 [facility] 100, [place], [address] [facility] 13:37:17 Problem Notes None recorded. Medical Equipment None Reported. Allergies Allergen ID Allergen Name Allergen Category Reaction Reaction Severity Criticality Documentation Date Start Date Code Code System Note Provider Name and Address Organization Details Recorded Time 380556 Substance with sulfonami de structure and antibacte rial mechanism of action (substanc e) medicatio n Not available Not available Not available 07/16/2025 48525 8003 SNOMED MILENA jasso [facility] 13:14:33 Medications Name Sig Start Date Stop [...] Updated DateTime 07/16/2025 177.8 cm 25.8 kg/m2 40279.63 g MILENA SALCIDO [place] - [facility] 07/16/2025 13:14:23 Social History None recorded. Functional Status None recorded. Mental Status None recorded. Family History Nothing Reported. Medical History No medical history recorded. Past Encounters Encounter ID Performer Location Encounter Start Date Encounter Closed Date Diagnosis/Indication Diagnosis SNOMED-CT Code Diagnosis ICD10 Code Diagnosis IMO Codes Diagnosis Note [id number] JAMEE CHUNG MD [facility] [address] [address] 07/16/2025 12:41:59 07/16/2025 13:40:24 Dysfunction of bilateral eustachian tubes [id number] 931724 H69.93 53099366 Allergic rhinitis 237657 04 J30.9 1267030 Health Concerns Section Related Observation LastModified by Organization Detai ls LastModified Time None Recorded Concern Status LastModified by Organization Details LastModified Time None Recorded Advance Directives Directive None Recorded Payers Insurance Date Sequence Insurance Name Policy Number Policy May Covered Member ID May Member ID Guarantor Name 07/16/2025 1 [facility]) [id number] Johnathon Quezada [id number] Johnathon Quezada Notes Date Note Type [...] congestion in the mornings. JAMEE CHUNG MD [address] [place] [address], [phone], [facility] - [facility] 07/16/2025 13:40:39
--- OUTSIDE RECORDS SUMMARY | 2025-10-07 13:05 | XMS_ITS | Continuity of Care Document ---
Author Organization [place] - [facility], [facility] Address [address] [place] [phone] Care Team Providers Care Veneer Jointer Operator Name Role Phone GILLIAN SPRAGUE Primary Care [...] By Organization Details Last Modified Time 07/16/2025 [id number] Continue using Flonase and saline rinses as [...] Recorded Time Dysfunction of bilateral eustachian tubes [id number] 100 Active 2024 JAMEE CHUNG MD [address] [place] [address], [place], [phone] [facility] 13:33:03 Allergic rhinitis 31739426 Active 2024 JAMEE CHUNG MD [address] [place] [address], [place], [phone] [facility] 13:37:17 Problem Notes None recorded. Medical Equipment None Reported. Allergies Allergen ID Allergen Name Allergen Category Reaction Reaction Severity Criticality Documentation Date Start Date Code Code System Note Provider Name and Address Organization Details Recorded Time [id number] Substance with sulfonami de structure and antibacte rial mechanism of action (substanc e) medicatio n Not available Not available Not available 07/16/2025 36711 8003 SNOMED MILENA jasso [facility] 13:14:33 Medications Name Sig Start Date [...] Updated DateTime 07/16/2025 177.8 cm 25.8 kg/m2 73293.63 g MILENA SALCIDO [place] - [facility] 07/16/2025 13:14:23 Social History None recorded. Functional Status None recorded. Mental Status None recorded. Family History Nothing Reported. Medical History No medical history recorded. Past Encounters Encounter ID Performer Location Encounter Start Date Encounter Closed Date Diagnosis/Indication Diagnosis SNOMED-CT Code Diagnosis ICD10 Code Diagnosis IMO Codes Diagnosis Note [id number] JAMEE CHUNG MD [facility] [address] [phone] 07/16/2025 12:41:59 07/16/2025 13:40:24 Dysfunction of bilateral eustachian tubes 4630005765 591879 H69.93 23930983 Allergic rhinitis 144375 04 J30.9 [id number] Health Concerns Section Related Observation LastModified by Organization Detai ls LastModified Time None Recorded Concern Status LastModified by Organization Details LastModified Time None Recorded Payers Encounter Date Sequence Insurance Name Policy Number Policy May Covered Member ID May Member ID Guarantor Name 07/16/2025 1 [facility]) [id number] Johnathon Quezada [id number] Johnathon Quezada Notes Date Note Type [...] congestion in the mornings. JAMEE CHUNG MD [address] [place] [address], [phone], [facility] - [facility] 07/16/2025 13:40:39
== END 2025-10-07 11:59 | disposition home or self-care (01) ==
LOC: HO.HMCC 11:05
PROVIDERS: PCP Nurse Practitioner Family; Visit Provider Nurse Practitioner Family
DX: Z00.00 Encounter for general adult medical examination without abnormal findings (principal); R74.8 Abnormal levels of other serum enzymes; E78.5 Hyperlipidemia, unspecified

== ENCOUNTER → 2025-10-07 11:04 | Outpatient (BNVA) | payer BC, SELFPAY | PROVIDERS: PCP Nurse Practitioner Family; Visit Provider Nurse Practitioner Family | DX: R74.8 Abnormal levels of other serum enzymes (principal); E78.5 Hyperlipidemia, unspecified | CPT/HCPCS: 96127 ==